=== PATIENT | female | born 1945 | race Hispanic/Latino ===

== ENCOUNTER 2017-05-23 09:41 | Observation (INO) | payer OTHER ==
[~2017-05-23] VITALS: Ht 162.6 cm; Wt 61.9 kg
[~2017-05-23 09:41] MED LIST: AMLO2.5T PO; ASPI-1181 PO; CHOL50004 PO; CLOP75TA14 PO; EZET10TA26 PO; FISH1CAP50 PO; GLIP5TAB11 PO; HYDR25TA PO; LISI40TA4 PO; SITA1TBM4 PO; UBID100C45 PO
[2017-05-23 10:12] LABS: BASOPHILS % (AUTO) 0.7 % (0.0-5.0); EOSINOPHILS % (AUTO) 2.5 % (0.0-8.0); LYMPHOCYTES % (AUTO) 29.1 % (21.0-51.0); MEAN CORPUSCULAR HEMOGLOBIN 30.4 pg (27.0-33.0); MEAN CORPUSCULAR HGB CONC 34.9 g/dL (32.0-36.0); MEAN CORPUSCULAR VOLUME 87.1 fL (79-99); MONOCYTES % (AUTO) 8.3 % (3.0-13.0); NEUTROPHILS % (AUTO) 59.4 % (40.0-77.0); PLATELET COUNT (AUTO) 241 K/uL (130-400); RED BLOOD CELL COUNT(AUTO) 3.79 MIL/uL (4.00-5.50); WHITE BLOOD COUNT (AUTO) 4.5 K/uL (4.8-10.8)
[2017-05-23 10:20] LABS: APPEARANCE,URINE Clear (CLEAR); BILIRUBIN,URINE Negative (NEGATIVE); COLOR,URINE Yellow (YELLOW); GLUCOSE, URINE (UA) TRACE mg/dL (NEGATIVE); KETONES,URINE Negative (NEGATIVE); LEUKOCYTE ESTERASE ,URINE Moderate (NEGATIVE); NITRATE,URINE Negative (NEGATIVE); OCCULT BLOOD,URINE Negative (NEGATIVE); PROTEIN,URINE Negative (NEGATIVE); UROBILINOGEN,URINE 0.2 mg/dL (0.2-1.0)
[2017-05-23] MEDS ORDERED: ASPIRIN 325 MG TABLET ONE (10:25)
[2017-05-23] MEDS ORDERED: NITROGLYCERIN 1GM/1 INCH PACKET TD ONE (10:25)
[2017-05-23 10:35] LABS: BACTERIA,URINE Rare /HPF (None Seen); MUCUS,URINE Few LPF (None Seen); SQUAMOUS EPITHELIAL CELL,UR Rare /HPF (0-2)
[2017-05-23 10:44] LABS: INR 0.93 (0.85-1.15); PARTIAL THROMBOPLASTIN TIME 26.6 SEC (26.3-35.5); PROTHROMBIN TIME 9.8 SEC (9.6-11.6)
[2017-05-23 10:49] LABS: CREATININE 0.8 mg/dL (0.5-1.5)
[2017-05-23 11:08] LABS: ALBUMIN 3.4 g/dL (3.5-5.0); BILIRUBIN,TOTAL 0.2 mg/dL (0.2-1.0); TOTAL PROTEIN, SERUM 7.1 g/dL (6.0-8.3)
[2017-05-23 12:00] LABS: CREATINE KINASE MB 0.8 ng/mL (0.5-3.6)
[2017-05-23 16:29] LABS: CREATINE KINASE MB 0.8 ng/mL (0.5-3.6); CREATINE KINASE, TOTAL 30 U/L (21-232); MYOGLOBIN 22 ng/mL (10-92); TROPONIN I < 0.04 ng/mL (0.00-0.06)
[2017-05-23] MEDS: GLIPIZIDE 5 MG TABLET PO SCH (16:30)
[2017-05-23] MEDS ORDERED: METOPROLOL TARTRATE 25 MG TAB ONE (20:54)
[2017-05-23] MEDS: METOPROLOL TARTRATE 25 MG TAB PO SCH (21:00)
[2017-05-23 23:51] VITALS: BP 144/60
[2017-05-24] MEDS ORDERED: PRAV40TA3 PO (00:17)
[2017-05-24] MEDS ORDERED: UBID100C10 PO (00:17)
[2017-05-24] MEDS ORDERED: LISI40TA4 PO (00:17)
[2017-05-24] MEDS ORDERED: GLIP5TAB11 PO (00:17)
[2017-05-24] MEDS ORDERED: AEC81 PO (00:17)
[2017-05-24] MEDS ORDERED: NITR0.4T50 SL (00:17)
[2017-05-24] MEDS ORDERED: EZET10TA26 PO (00:17)
[2017-05-24] MEDS ORDERED: SITA1TAB6 PO (00:17)
[2017-05-24] MEDS ORDERED: HYDR25TA PO (00:17)
[2017-05-24] MEDS ORDERED: CALC-866 PO (00:17)
[2017-05-24] MEDS ORDERED: RED600TA PO (00:17)
[2017-05-24] MEDS ORDERED: GLUCOCIL PO (00:17)
[2017-05-24] MEDS ORDERED: CYAN-35 PO (00:17)
[2017-05-24] MEDS ORDERED: FISH1CAP27 PO ×2 (00:17)
[2017-05-24] MEDS ORDERED: AMLO25PO MC (00:17)
[2017-05-24] MEDS ORDERED: HYDRALAZINE HCL 20 MG/ML VIAL IV PRN (01:15)
[2017-05-24] MEDS ORDERED: MORPHINE SULFATE 2 MG/ML 1ML SYG IVP PRN ×2 (01:15)
[2017-05-24] MEDS ORDERED: ONDANSETRON HCL MDV 20ML 2 MG/ML VIAL IVP PRN (01:15)
[2017-05-24] MEDS ORDERED: GLUCAGON 1MG KIT 1 MG ML IM PRN (01:15)
[2017-05-24] MEDS ORDERED: ACETAMINOPHEN 325 MG TAB PO PRN (01:15)
[2017-05-24] MEDS ORDERED: LIDOCAINE HCL-MPF 1% 2ML VIAL IVP PRN (01:15)
[2017-05-24] MEDS ORDERED: DEXTROSE 50%-WATER 50 ML DISP.SYRIN IV PRN (01:15)
[2017-05-24] MEDS ORDERED: LACTULOSE 20 GM/30 ML UDCUP PO PRN (01:15)
[2017-05-24] MEDS ORDERED: POTASSIUM CHLORIDE 10% ELIXIR 20 MEQ/15 ML UDCUP PO PRN (01:15)
[2017-05-24] MEDS ORDERED: POTASSIUM CHLORIDE 20MEQ/100ML 100 ML IV PRN (01:15)
[2017-05-24] MEDS ORDERED: POTASSIUM CHLORIDE 20 MEQ ERTAB PO PRN (01:15)
[2017-05-24] MEDS ORDERED: LEVOFLOXACIN 500 MG/D5W 100 ML 100 ML IV SCH (01:15)
[2017-05-24] MEDS ORDERED: LEVOFLOXACIN 500 MG/D5W 100 ML 100 ML ONE (01:42)
[2017-05-24 03:33] VITALS: BP 132/55
[2017-05-24 04:46] LABS: BASOPHILS % (AUTO) 0.6 % (0.0-5.0); EOSINOPHILS % (AUTO) 3.1 % (0.0-8.0); HEMATOCRIT 32.3 % (36-48); LYMPHOCYTES % (AUTO) 28.5 % (21.0-51.0); MEAN CORPUSCULAR HEMOGLOBIN 30.3 pg (27.0-33.0); MEAN CORPUSCULAR HGB CONC 35.2 g/dL (32.0-36.0); MEAN CORPUSCULAR VOLUME 86.2 fL (79-99); NEUTROPHILS % (AUTO) 57.8 % (40.0-77.0); NUCLEATED RED BLOOD CELLS 0.1 % (0.0-0.19); PLATELET COUNT (AUTO) 243 K/uL (130-400); RED BLOOD CELL COUNT(AUTO) 3.75 MIL/uL (4.00-5.50); RED CELL DISTRIBUTION WIDTH 13.6 % (11.0-15.5)
[2017-05-24 05:00] LABS: CREATININE 0.8 mg/dL (0.5-1.5)
[2017-05-24 05:04] LABS: HEMOGLOBIN A1C 7.9 % (4.0-6.0)
[2017-05-24] MEDS: GLIPIZIDE 5 MG TABLET PO SCH ×2 (06:41→16:27)
[2017-05-24] MEDS: INSULIN HUMULIN R 100 UNIT/ML 3ML SQ SCH ×3 (06:42→16:30)
[2017-05-24 07:00] VITALS: BP 124/53
[2017-05-24] MEDS ORDERED: REGADENOSON 0.4 MG/5 ML PF SYG IVP SCH (07:15)
[2017-05-24] MEDS: METOPROLOL TARTRATE 25 MG TAB PO SCH (08:10)
[2017-05-24] MEDS ORDERED: EZETIMIBE 10 MG TAB PO SCH (09:00)
[2017-05-24] MEDS ORDERED: CLOPIDOGREL BISULFATE 75 MG TAB PO SCH (09:00)
[2017-05-24] MEDS ORDERED: FAMOTIDINE 20MG TAB 20 MG TAB PO SCH (09:00)
[2017-05-24] MEDS ORDERED: ENOXAPARIN SODIUM 40 MG/0.4 ML SYRINGE SQ SCH (09:00)
[2017-05-24] MEDS ORDERED: ASPIRIN 81MG TAB.CHEW PO SCH (09:00)
[2017-05-24] MEDS ORDERED: LISINOPRIL 40 MG TABLET PO SCH (09:00)
[2017-05-24 11:00] VITALS: BP 150/63
[2017-05-24 16:00] VITALS: BP 137/66
[2017-05-25] MEDS ORDERED: HYDROCHLOROTHIAZIDE 25 MG TABLET PO SCH (09:00)
[2017-05-25] MEDS ORDERED: EZETIMIBE 10 MG TAB PO SCH (09:00)
== END 2017-05-24 18:51 | disposition home or self-care (01) ==
LOC: EDH 09:41 → EDHIP 15:36 → 2AH 23:43
PROVIDERS: ADMIT Internal Medicine; ATTEND Internal Medicine
DX: I25.110 Atherosclerotic heart disease of native coronary artery with unstable angina pectoris (principal); I10 Essential (primary) hypertension; E78.5 Hyperlipidemia, unspecified; E11.51 Type 2 diabetes mellitus with diabetic peripheral angiopathy without gangrene; E11.65 Type 2 diabetes mellitus with hyperglycemia; N39.0 Urinary tract infection, site not specified; I25.2 Old myocardial infarction; Z95.1 Presence of aortocoronary bypass graft; Z95.5 Presence of coronary angioplasty implant and graft; Z88.1 Allergy status to other antibiotic agents; Z79.82 Long term (current) use of aspirin; Z79.84 Long term (current) use of oral hypoglycemic drugs; Z79.899 Other long term (current) drug therapy; Z88.0 Allergy status to penicillin
CPT/HCPCS: 36415 ×2; 71045; 78452; 80048; 80053; 80061; 81001; 82550 ×2; 82553 ×2; 82948 ×5; 83036; 83874; 84484 ×3; 85025 ×2; 85610; 85730; 93005 ×2; 93017; 96372; 99285; A9500 ×2; G0378 ×27; J1650; J1815; J1956; J2785; 96374; 99291

== ENCOUNTER → 2017-07-06 | Outpatient (CLI) | payer OTHER ==
[~2017-07-06] MED LIST changes: +AEC81 PO; +AMLO25PO MC; +CALC-866 PO; +CYAN-35 PO; +FISH1CAP27 PO; +GLUCOCIL PO; +NITR0.4T50 SL; +PRAV40TA3 PO; +RED600TA PO; +SITA1TAB6 PO; +UBID100C10 PO
== END | disposition home or self-care (01) ==
LOC: SLP 20:20
PROVIDERS: ATTEND Internal Medicine Cardiovascular Disease
DX: G47.33 Obstructive sleep apnea (adult) (pediatric) (principal)
CPT/HCPCS: 95810

== ENCOUNTER → 2017-07-18 | Outpatient (CLI) | payer OTHER | END | disposition home or self-care (01) | LOC: SLP 20:24 | PROVIDERS: ATTEND Internal Medicine Cardiovascular Disease | DX: G47.33 Obstructive sleep apnea (adult) (pediatric) (principal) | CPT/HCPCS: 95811 ==

== ENCOUNTER 2018-01-14 19:21 | Emergency (ER) | payer OTHER ==
[~2018-01-14 19:21] MED LIST changes: -AMLO2.5T PO; +AMLO2.5T3 PO
[2018-01-14 20:06] LABS: INR 0.92 (0.85-1.15); PARTIAL THROMBOPLASTIN TIME 23.7 SEC (26.3-35.5); PROTHROMBIN TIME 9.7 SEC (9.6-11.6)
[2018-01-14 20:07] LABS: BASOPHILS % (AUTO) 0.5 % (0.0-5.0); EOSINOPHILS % (AUTO) 2.8 % (0.0-8.0); HEMATOCRIT 34.3 % (36-48); LYMPHOCYTES % (AUTO) 24.1 % (21.0-51.0); MEAN CORPUSCULAR HEMOGLOBIN 29.4 pg (27.0-33.0); MEAN CORPUSCULAR HGB CONC 33.4 g/dL (32.0-36.0); MEAN CORPUSCULAR VOLUME 88.2 fL (79-99); MONOCYTES % (AUTO) 6.6 % (3.0-13.0); NUCLEATED RED BLOOD CELLS 0.1 % (0.0-0.19); PLATELET COUNT (AUTO) 233 K/uL (130-400); RED BLOOD CELL COUNT(AUTO) 3.89 MIL/uL (4.00-5.50); RED CELL DISTRIBUTION WIDTH 14.1 % (11.0-15.5); WHITE BLOOD COUNT (AUTO) 6.8 K/uL (4.8-10.8)
[2018-01-14 20:21] LABS: CREATININE 0.8 mg/dL (0.5-1.5); POTASSIUM 4.1 mmol/L (3.5-5.1)
[2018-01-14 20:26] LABS: ALBUMIN 3.6 g/dL (3.5-5.0); BILIRUBIN,TOTAL 0.2 mg/dL (0.2-1.0); TOTAL PROTEIN, SERUM 7.3 g/dL (6.0-8.3)
[2018-01-14] MEDS ORDERED: TRAMADOL HCL 50 MG TABLET ONE (20:40)
== END 2018-01-14 22:22 | disposition home or self-care (01) ==
LOC: EDH 19:21
DX: S09.90XA Unspecified injury of head, initial encounter (principal); M54.2 Cervicalgia; M54.5 Low back pain; R07.89 Other chest pain; E11.9 Type 2 diabetes mellitus without complications; E78.5 Hyperlipidemia, unspecified; I10 Essential (primary) hypertension; I25.2 Old myocardial infarction; Z95.1 Presence of aortocoronary bypass graft; W10.8XXA Fall (on) (from) other stairs and steps, initial encounter; Y93.89 Activity, other specified; Y92.89 Other specified places as the place of occurrence of the external cause; Y99.8 Other external cause status
CPT/HCPCS: 36415; 70450; 71045; 72100; 72125; 80053; 82550; 84484; 85025; 85610; 85730; 93005; 94761

== ENCOUNTER → 2018-10-11 | Outpatient (CLI) | payer OTHER ==
[~2018-10-11] MED LIST changes: -AMLO2.5T3 PO; +AMLO2.5T4 PO; -EZET10TA26 PO; +EZET10TA48 PO
== END | disposition home or self-care (01) ==
LOC: SHCH 13:00
PROVIDERS: ATTEND Internal Medicine Cardiovascular Disease
DX: I08.0 Rheumatic disorders of both mitral and aortic valves (principal); I11.9 Hypertensive heart disease without heart failure
CPT/HCPCS: 93306; 93880

== ENCOUNTER → 2018-11-16 | Outpatient (CLI) | payer OTHER ==
[~2018-11-16] MED LIST changes: +REGADENOSON 0.4 MG/5 ML PF SYG IVP ONE
== END | disposition home or self-care (01) ==
LOC: SHCH 08:23
PROVIDERS: ATTEND Internal Medicine Cardiovascular Disease
DX: I10 Essential (primary) hypertension (principal)
CPT/HCPCS: 78452; 93017; 96374; A9500 ×2; J2785

== ENCOUNTER 2018-12-03 07:43 | Emergency (ER) | payer OTHER ==
[~2018-12-03 07:43] MED LIST changes: -REGADENOSON 0.4 MG/5 ML PF SYG IVP ONE
[2018-12-03] MEDS ORDERED: HYDROCODONE/ACETAMINOPHEN 10/325 MG TAB ONE (08:47)
[2018-12-03] MEDS ORDERED: CYCLOBENZAPRINE HCL 10 MG TABLET ONE (08:47)
== END 2018-12-03 11:18 | disposition home or self-care (01) ==
LOC: EDH 07:43
DX: M51.36 Other intervertebral disc degeneration, lumbar region (principal); E11.9 Type 2 diabetes mellitus without complications; I10 Essential (primary) hypertension; I25.2 Old myocardial infarction; E78.5 Hyperlipidemia, unspecified; Z98.890 Other specified postprocedural states
CPT/HCPCS: 72131

== ENCOUNTER 2018-12-11 22:04 | Emergency (ER) | payer OTHER ==
[2018-12-11] MEDS ORDERED: ASPIRIN 325MG EC TAB 325 MG TABLET.DR PO ONE (22:39)
[2018-12-11 22:44] LABS: APPEARANCE,URINE Clear (CLEAR); BILIRUBIN,URINE Negative (NEGATIVE); COLOR,URINE Yellow (YELLOW); GLUCOSE, URINE (UA) >=1000 mg/dL (NEGATIVE); KETONES,URINE Trace mg/dL (NEGATIVE); LEUKOCYTE ESTERASE ,URINE Negative (NEGATIVE); NITRATE,URINE Negative (NEGATIVE); OCCULT BLOOD,URINE Negative (NEGATIVE); PROTEIN,URINE Negative (NEGATIVE); UROBILINOGEN,URINE 0.2 mg/dL (0.2-1.0)
[2018-12-11 22:58] LABS: BACTERIA,URINE Rare /HPF (None Seen)
[2018-12-11 23:13] LABS: BASOPHILS % (AUTO) 0.2 % (0.0-5.0); EOSINOPHILS % (AUTO) 0.1 % (0.0-8.0); LYMPHOCYTES % (AUTO) 11.3 % (21.0-51.0); MEAN CORPUSCULAR HEMOGLOBIN 29.9 pg (27.0-33.0); MEAN CORPUSCULAR HGB CONC 34.2 g/dL (32.0-36.0); MEAN CORPUSCULAR VOLUME 87.5 fL (79-99); MONOCYTES % (AUTO) 4.5 % (3.0-13.0); NEUTROPHILS % (AUTO) 83.9 % (40.0-77.0); PLATELET COUNT (AUTO) 305 K/uL (130-400); RED BLOOD CELL COUNT(AUTO) 3.77 MIL/uL (4.00-5.50); WHITE BLOOD COUNT (AUTO) 6.9 K/uL (4.8-10.8)
[2018-12-11] MEDS ORDERED: DIAZEPAM 2 MG TAB ONE (23:16)
[2018-12-11 23:28] LABS: INR 0.96 (0.85-1.15); PARTIAL THROMBOPLASTIN TIME 27.3 SEC (26.3-35.5); PROTHROMBIN TIME 10.1 SEC (9.6-11.6)
[2018-12-11 23:47] LABS: ALBUMIN 3.6 g/dL (3.5-5.0); BILIRUBIN,TOTAL 0.3 mg/dL (0.2-1.0); CREATININE 1.2 mg/dL (0.5-1.5); POTASSIUM 4.3 mmol/L (3.5-5.1); TOTAL PROTEIN, SERUM 7.2 g/dL (6.0-8.3)
[2018-12-11 23:50] LABS: B-TYPE NATRIURETIC PEPTIDE 116 pg/mL (0-100)
[2018-12-11] MEDS ORDERED: SODIUM CHLORIDE 0.9% 500ML 500 ML IV ONE (23:55)
== END 2018-12-12 01:08 | disposition home or self-care (01) ==
LOC: EDH 22:04
DX: R07.89 Other chest pain (principal); E11.65 Type 2 diabetes mellitus with hyperglycemia; R10.2 Pelvic and perineal pain; E78.5 Hyperlipidemia, unspecified; I25.10 Atherosclerotic heart disease of native coronary artery without angina pectoris; M19.90 Unspecified osteoarthritis, unspecified site; Z95.1 Presence of aortocoronary bypass graft
CPT/HCPCS: 36415; 71045; 80053; 81001; 82550; 83880; 84484; 85025; 85610; 85730; 93005; 96360; 99285; J7040

== ENCOUNTER → 2018-12-21 | Outpatient (CLI) | payer OTHER | END | disposition home or self-care (01) | LOC: RAH 09:37 | PROVIDERS: ATTEND Internal Medicine | DX: M16.12 Unilateral primary osteoarthritis, left hip (principal); M85.88 Other specified disorders of bone density and structure, other site; I70.0 Atherosclerosis of aorta | CPT/HCPCS: 73502 ==

== ENCOUNTER → 2019-01-08 | Outpatient (CLI) | payer OTHER | END | disposition home or self-care (01) | LOC: RAH 10:08 | PROVIDERS: ATTEND Internal Medicine | DX: M48.54XA Collapsed vertebra, not elsewhere classified, thoracic region, initial encounter for fracture (principal) | CPT/HCPCS: 72072 ==

== ENCOUNTER 2019-03-20 13:23 | Emergency (ER) | payer OTHER ==
[~2019-03-20 13:23] MED LIST changes: +ACET1TAB25 PO; -AEC81 PO; -AMLO25PO MC; -ASPI-1181 PO; +ASPI-1197 PO; -CALC-866 PO; +CHOL400C9 PO; -CHOL50004 PO; -CLOP75TA14 PO; +CLOP75TA32 PO; -CYAN-35 PO; -FISH1CAP50 PO; -HYDR25TA PO; +INSU3INS3 SQ; +LEVO500T2 PO; -NITR0.4T50 SL; -RED600TA PO; -SITA1TBM4 PO; -UBID100C10 PO; -UBID100C45 PO; +UBID1CAP2 PO
[2019-03-20 14:24] LABS: BASOPHILS % (AUTO) 0.5 % (0.0-5.0); EOSINOPHILS % (AUTO) 1.6 % (0.0-8.0); LYMPHOCYTES % (AUTO) 22.2 % (21.0-51.0); MEAN CORPUSCULAR HEMOGLOBIN 28.8 pg (27.0-33.0); MEAN CORPUSCULAR HGB CONC 32.1 g/dL (32.0-36.0); MEAN CORPUSCULAR VOLUME 89.9 fL (79-99); MONOCYTES % (AUTO) 6.4 % (3.0-13.0); PLATELET COUNT (AUTO) 308 K/uL (130-400); RED BLOOD CELL COUNT(AUTO) 3.78 MIL/uL (4.00-5.50); RED CELL DISTRIBUTION WIDTH 15.1 % (11.0-15.5); WHITE BLOOD COUNT (AUTO) 6.4 K/uL (4.8-10.8)
[2019-03-20 14:27] LABS: APPEARANCE,URINE Clear (CLEAR); BILIRUBIN,URINE Negative (NEGATIVE); COLOR,URINE Yellow (YELLOW); GLUCOSE, URINE (UA) Negative (NEGATIVE); KETONES,URINE 15 mg/dL (NEGATIVE); LEUKOCYTE ESTERASE ,URINE Trace (NEGATIVE); NITRATE,URINE Negative (NEGATIVE); OCCULT BLOOD,URINE Negative (NEGATIVE); PROTEIN,URINE Negative (NEGATIVE)
[2019-03-20] MEDS ORDERED: SODIUM CHLORIDE 0.9% 1000ML 1,000 ML IV ONE (14:49)
[2019-03-20] MEDS ORDERED: MORPHINE SULFATE 4 MG/1ML SYG ONE (14:50)
[2019-03-20] MEDS ORDERED: ACETAMINOPHEN 325 MG TAB ONE (14:50)
[2019-03-20 14:51] LABS: BACTERIA,URINE Rare /HPF (None Seen); RBC,URINE None Seen /HPF (0-1); SQUAMOUS EPITHELIAL CELL,UR 0-2 /HPF (0-2); WBC,URINE 0-1 /HPF (0-1)
[2019-03-20 15:00] LABS: CREATININE 0.7 mg/dL (0.5-1.5); POTASSIUM 3.8 mmol/L (3.5-5.1)
[2019-03-20 15:04] LABS: ALBUMIN 3.7 g/dL (3.5-5.0); BILIRUBIN,TOTAL 0.3 mg/dL (0.2-1.0); TOTAL PROTEIN, SERUM 7.2 g/dL (6.0-8.3)
[2019-03-20] MEDS ORDERED: IOHEXOL-350 75 ML VIAL IV ONE (15:26)
== END 2019-03-20 17:22 | disposition home or self-care (01) ==
LOC: EDH 13:23
DX: R10.30 Lower abdominal pain, unspecified (principal); M48.54XA Collapsed vertebra, not elsewhere classified, thoracic region, initial encounter for fracture; M19.90 Unspecified osteoarthritis, unspecified site; E11.9 Type 2 diabetes mellitus without complications; E78.5 Hyperlipidemia, unspecified; I10 Essential (primary) hypertension; I25.10 Atherosclerotic heart disease of native coronary artery without angina pectoris; Z88.1 Allergy status to other antibiotic agents; Z91.041 Radiographic dye allergy status
CPT/HCPCS: 36415; 74177; 80053; 81001; 83605; 85025; 96374; 99285; J2270; J7030; Q9967

== ENCOUNTER → 2019-03-26 | Outpatient (CLI) | payer OTHER | END | disposition home or self-care (01) | LOC: RAH 11:16 | PROVIDERS: ATTEND Internal Medicine | DX: Z12.31 Encounter for screening mammogram for malignant neoplasm of breast (principal) | CPT/HCPCS: 77067 ==

== ENCOUNTER → 2019-04-03 | Outpatient (CLI) | payer OTHER | END | disposition home or self-care (01) | LOC: RAH 07:36 | PROVIDERS: ATTEND Internal Medicine | DX: N28.1 Cyst of kidney, acquired (principal); N20.0 Calculus of kidney; N39.0 Urinary tract infection, site not specified | CPT/HCPCS: 76770; 76856 ==

== ENCOUNTER 2019-04-07 19:19 | Emergency (ER) | payer OTHER ==
[2019-04-07 20:00] LABS: BASOPHILS % (AUTO) 0.3 % (0.0-5.0); EOSINOPHILS % (AUTO) 1.2 % (0.0-8.0); HEMATOCRIT 35.6 % (36-48); LYMPHOCYTES % (AUTO) 17.4 % (21.0-51.0); MEAN CORPUSCULAR HEMOGLOBIN 28.6 pg (27.0-33.0); MEAN CORPUSCULAR VOLUME 89.4 fL (79-99); MONOCYTES % (AUTO) 6.7 % (3.0-13.0); NEUTROPHILS % (AUTO) 74.2 % (40.0-77.0); PLATELET COUNT (AUTO) 295 K/uL (130-400); RED BLOOD CELL COUNT(AUTO) 3.98 MIL/uL (4.00-5.50); WHITE BLOOD COUNT (AUTO) 9.3 K/uL (4.8-10.8)
[2019-04-07] MEDS ORDERED: SODIUM CHLORIDE 0.9% 1000ML 1,000 ML IV ONE (20:00)
[2019-04-07] MEDS ORDERED: ONDANSETRON HCL 4 MG/2 ML VIAL ONE (20:00)
[2019-04-07] MEDS ORDERED: MORPHINE SULFATE 4 MG/1ML SYG ONE (20:01)
[2019-04-07 20:02] LABS: APPEARANCE,URINE Cloudy (CLEAR); BILIRUBIN,URINE Negative (NEGATIVE); COLOR,URINE Dark Yellow (YELLOW); GLUCOSE, URINE (UA) >=1000 mg/dL (NEGATIVE); KETONES,URINE Negative (NEGATIVE); LEUKOCYTE ESTERASE ,URINE Trace (NEGATIVE); NITRATE,URINE Negative (NEGATIVE); OCCULT BLOOD,URINE Large (NEGATIVE); PROTEIN,URINE POS 1+ mg/dL (NEGATIVE)
[2019-04-07 20:11] LABS: BACTERIA,URINE None Seen /HPF (None Seen); RBC,URINE 51-100 /HPF (0-1); YEAST,URINE BUDDING Moderate /HPF (None Seen)
[2019-04-07 20:12] LABS: SQUAMOUS EPITHELIAL CELL,UR Few /HPF (0-2)
[2019-04-07 20:14] LABS: CREATININE 0.8 mg/dL (0.5-1.5); POTASSIUM 4.7 mmol/L (3.5-5.1)
[2019-04-07 20:18] LABS: ALBUMIN 4.2 g/dL (3.5-5.0); BILIRUBIN,TOTAL 0.3 mg/dL (0.2-1.0); TOTAL PROTEIN, SERUM 7.6 g/dL (6.0-8.3)
[2019-04-07] MEDS ORDERED: KETOROLAC TROMETHAMINE 30MG/ML ONE (22:17)
== END 2019-04-07 22:59 | disposition home or self-care (01) ==
LOC: EDH 19:19
DX: N20.0 Calculus of kidney (principal); I25.810 Atherosclerosis of coronary artery bypass graft(s) without angina pectoris; E11.9 Type 2 diabetes mellitus without complications; E78.5 Hyperlipidemia, unspecified; I10 Essential (primary) hypertension; Z88.1 Allergy status to other antibiotic agents
CPT/HCPCS: 36415; 74176; 80053; 81001; 82150; 83690; 84484; 85025; 93005; 96374; 96375; 99285; J1885; J2270; J2405; J7030

== ENCOUNTER → 2019-04-24 | Outpatient (CLI) | payer OTHER | END | disposition home or self-care (01) | LOC: RAH 08:51 | PROVIDERS: ATTEND Urology | DX: N28.89 Other specified disorders of kidney and ureter (principal); N20.0 Calculus of kidney; M47.816 Spondylosis without myelopathy or radiculopathy, lumbar region; S22.089A Unspecified fracture of T11-T12 vertebra, initial encounter for closed fracture; I87.8 Other specified disorders of veins; X58.XXXA Exposure to other specified factors, initial encounter; Y93.89 Activity, other specified; Y92.89 Other specified places as the place of occurrence of the external cause; Y99.8 Other external cause status | CPT/HCPCS: 74018 ==

== ENCOUNTER → 2019-05-01 | Outpatient (CLI) | payer OTHER | END | disposition home or self-care (01) | LOC: RAH 12:37 | PROVIDERS: ATTEND Urology | DX: N28.1 Cyst of kidney, acquired (principal); N20.0 Calculus of kidney; J98.11 Atelectasis; M43.8X4 Other specified deforming dorsopathies, thoracic region; M47.816 Spondylosis without myelopathy or radiculopathy, lumbar region | CPT/HCPCS: 74176 ==

== ENCOUNTER → 2019-09-11 | Outpatient (CLI) | payer OTHER | END | disposition home or self-care (01) | LOC: SHCH 14:31 | PROVIDERS: ATTEND Internal Medicine Cardiovascular Disease | DX: I70.292 Other atherosclerosis of native arteries of extremities, left leg (principal); I70.201 Unspecified atherosclerosis of native arteries of extremities, right leg | CPT/HCPCS: 93925 ==

== ENCOUNTER → 2020-05-06 | Outpatient (CLI) | payer OTHER ==
[~2020-05-06] MED LIST changes: -LISI40TA4 PO; +LISI40TA9 PO
== END | disposition home or self-care (01) ==
LOC: RAH 11:23
PROVIDERS: ATTEND Internal Medicine
DX: M85.88 Other specified disorders of bone density and structure, other site (principal); M16.0 Bilateral primary osteoarthritis of hip; M51.36 Other intervertebral disc degeneration, lumbar region
CPT/HCPCS: 72100; 73521

== ENCOUNTER → 2020-07-09 | Outpatient (CLI) | payer OTHER ==
[~2020-07-09] MED LIST changes: +IOHEXOL 350 MG/ML 100ML INFUS..BTL IV ONE; +IOHEXOL-350 50ML VIAL IV ONE
== END | disposition home or self-care (01) ==
LOC: RAH 08:08
PROVIDERS: ATTEND Internal Medicine Cardiovascular Disease
DX: I73.9 Peripheral vascular disease, unspecified (principal); I70.0 Atherosclerosis of aorta; N85.8 Other specified noninflammatory disorders of uterus
CPT/HCPCS: 75635; Q9967 ×2

== ENCOUNTER → 2020-08-19 | Outpatient (CLI) | payer OTHER ==
[~2020-08-19] MED LIST changes: -IOHEXOL 350 MG/ML 100ML INFUS..BTL IV ONE; -IOHEXOL-350 50ML VIAL IV ONE
== END | disposition home or self-care (01) ==
LOC: RAH 09:40
PROVIDERS: ATTEND Internal Medicine
DX: Z12.31 Encounter for screening mammogram for malignant neoplasm of breast (principal)
CPT/HCPCS: 77067

== ENCOUNTER → 2021-07-07 | Outpatient (CLI) | payer OTHER ==
[~2021-07-07] MED LIST changes: +ACET-2079 PO; -ACET1TAB25 PO
== END | disposition home or self-care (01) ==
LOC: SHCH 09:10
PROVIDERS: ATTEND Internal Medicine Cardiovascular Disease
DX: I65.23 Occlusion and stenosis of bilateral carotid arteries (principal)
CPT/HCPCS: 93880

== ENCOUNTER → 2021-10-12 | Outpatient (CLI) | payer OTHER ==
[2021-10-12 12:41] LABS: ALBUMIN 3.9 g/dL (3.5-5.0); CREATININE 0.9 mg/dL (0.5-1.5); POTASSIUM 4.7 mmol/L (3.5-5.1); TOTAL PROTEIN, SERUM 7.4 g/dL (6.0-8.3)
== END | disposition home or self-care (01) ==
LOC: LAB 08:13
PROVIDERS: ATTEND Internal Medicine Cardiovascular Disease
DX: I10 Essential (primary) hypertension (principal)
CPT/HCPCS: 36415; 80053

== ENCOUNTER → 2021-10-19 | Outpatient (CLI) | payer OTHER ==
[~2021-10-19] MED LIST changes: +IOHEXOL 350 MG/ML 100ML INFUS..BTL IV ONE; +IOHEXOL-350 50ML VIAL IV ONE
== END | disposition home or self-care (01) ==
LOC: RAH 08:45
PROVIDERS: ATTEND Internal Medicine Cardiovascular Disease
DX: I70.0 Atherosclerosis of aorta (principal); I70.202 Unspecified atherosclerosis of native arteries of extremities, left leg; I65.23 Occlusion and stenosis of bilateral carotid arteries; Z95.820 Peripheral vascular angioplasty status with implants and grafts
CPT/HCPCS: 75635; Q9967 ×2

== ENCOUNTER → 2022-10-04 | Outpatient (CLI) | payer OTHER ==
[~2022-10-04] MED LIST changes: -IOHEXOL 350 MG/ML 100ML INFUS..BTL IV ONE; -IOHEXOL-350 50ML VIAL IV ONE
== END | disposition home or self-care (01) ==
LOC: RAH 15:00
PROVIDERS: ATTEND Internal Medicine
DX: Z12.31 Encounter for screening mammogram for malignant neoplasm of breast (principal)
CPT/HCPCS: 77067

== ENCOUNTER → 2023-01-03 | Outpatient (CLI) | payer OTHER ==
[~2023-01-03] MED LIST changes: -GLIP5TAB11 PO; +GLIP5TAB15 PO; +IOHEXOL 350 MG/ML 100ML INFUS..BTL IV ONE
== END | disposition home or self-care (01) ==
LOC: RAH 07:53
PROVIDERS: ATTEND Internal Medicine Cardiovascular Disease
DX: I70.90 Unspecified atherosclerosis (principal); R55 Syncope and collapse
CPT/HCPCS: 70496; 70498; Q9967

== ENCOUNTER → 2023-03-03 | Outpatient (CLI) | payer OTHER ==
[~2023-03-03] MED LIST changes: -IOHEXOL 350 MG/ML 100ML INFUS..BTL IV ONE
== END | disposition home or self-care (01) ==
LOC: SHCH 11:30
PROVIDERS: ATTEND Internal Medicine Cardiovascular Disease
DX: I65.23 Occlusion and stenosis of bilateral carotid arteries (principal)
CPT/HCPCS: 93880

== ENCOUNTER → 2023-10-18 | Outpatient (CLI) | payer OTHER | END | disposition home or self-care (01) | LOC: RAH 11:50 | DX: Z12.31 Encounter for screening mammogram for malignant neoplasm of breast (principal) | CPT/HCPCS: 77067 ==

== ENCOUNTER → 2024-03-15 | Outpatient (CLI) | payer OTHER ==
--- NOTE | 2024-03-20 09:30 | HMCSR ---
APPROVED REPORT Laterality: Bilateral Indications r09.89 Doppler Spectral Velocity Analysis PSV / EDVPSV / EDV ECA (R) 289 / cm/sECA (L) 438 / cm/s dICA (R) 130 / 32 cm/sdICA (L) 122 / 36 cm/s Deyvi (R) 148 / 32 cm/smICA (L) 225 / 40 cm/s pICA (R) 173 / 31 cm/spICA (L) 308 / 38 cm/s dCCA (R) 66 / 18 cm/sdCCA (L) 65 / 14 cm/s mCCA (R) 70 / 18 cm/smCCA (L) 70 / 15 cm/s pCCA (R) 93 / 19 cm/spCCA (L) 76 / 20 cm/s Vert (R) 60 / cm/sVert (L) 60 / cm/s Subl. (R) 96 / cm/sSubl. (L) 169 / cm/s ICA/CCA 1.86ICA/CCA 4.05 Technologist Impression Moderate heterogenous calcified plaque noted in the bilateral carotid bulbs. Evidence of at least 50-69% stenosis in the Right ICA, calcific image drop out proximally. Evidence of as least >70% stenosis in the Left ICA, calcific image drop out proximally. Increased velocities noted in the bilateral ECAs. Bilateral vertebral arteries appear antegrade. Conclusion Moderate heterogenous calcified plaque noted in the bilateral carotid bulbs. Evidence of at least 50-69% stenosis in the Right ICA, calcific image drop out proximally. Evidence of as least >70% stenosis in the Left ICA, calcific image drop out proximally. Increased velocities noted in the bilateral ECAs. Bilateral vertebral arteries appear antegrade. Conclusion Moderate heterogenous calcified plaque noted in the bilateral carotid bulbs. Evidence of at least 50-69% stenosis in the Right ICA, calcific image drop out proximally. Evidence of as least >70% stenosis in the Left ICA, calcific image drop out proximally. Increased velocities noted in the bilateral ECAs. Bilateral vertebral arteries appear antegrade.
== END | disposition home or self-care (01) ==
LOC: SHCH 14:39
PROVIDERS: ATTEND Internal Medicine Cardiovascular Disease
DX: I65.23 Occlusion and stenosis of bilateral carotid arteries (principal); R09.89 Other specified symptoms and signs involving the circulatory and respiratory systems
CPT/HCPCS: 93880

== ENCOUNTER 2024-04-05 05:36 | Day surgery (SDC) | payer OTHER ==
[2024-04-05] VITALS (11 sets, daily range): BP systolic 136–160; BP diastolic 43–60; PULSE 63–73; RESP 15–17; TEMP 97.2–97.8
[~2024-04-05] VITALS: Ht 162.6 cm; Wt 55.8 kg
[2024-04-05] MEDS ORDERED: LISI20TA24 PO (06:47)
[2024-04-05] MEDS ORDERED: AMLO-257 PO (06:47)
[2024-04-05] MEDS ORDERED: COq10 PO (06:47)
[2024-04-05] MEDS ORDERED: ATOR10 PO (06:47)
[2024-04-05] MEDS ORDERED: CLON0.1T PO (06:48)
[2024-04-05] MEDS ORDERED: SITA100T12 PO (06:48)
[2024-04-05] MEDS: 0.9%NACL 1000ML 1,000 ML IV ONE (07:03)
[2024-04-05] MEDS ORDERED: proPOFol 10 MG/ML 20ML VIAL IV ONE (08:08)
== END 2024-04-05 09:25 | disposition home or self-care (01) ==
LOC: ENDO 05:36 → DAH 05:36 → ENDO 09:25
PROVIDERS: ATTEND Surgery
DX: C16.9 Malignant neoplasm of stomach, unspecified (principal); K29.50 Unspecified chronic gastritis without bleeding; K30 Functional dyspepsia; K22.89 Other specified disease of esophagus; I10 Essential (primary) hypertension; E78.5 Hyperlipidemia, unspecified; E11.51 Type 2 diabetes mellitus with diabetic peripheral angiopathy without gangrene; E55.9 Vitamin D deficiency, unspecified; Z79.82 Long term (current) use of aspirin; Z79.899 Other long term (current) drug therapy
CPT/HCPCS: 82948 ×2; 43239; J7030 ×2; J2704; A4215; A4223; A7002; A4222; A4221; A4663; A4606; J3490

== ENCOUNTER → 2024-06-14 | Outpatient (CLI) | payer OTHER ==
[~2024-06-14] MED LIST changes: -ACET-2079 PO; +AMLO-257 PO; -AMLO2.5T4 PO; +ATOR10 PO; -CHOL400C9 PO; +CLON0.1T PO; +COq10 PO; -GLUCOCIL PO; -INSU3INS3 SQ; -LEVO500T2 PO; +LISI20TA24 PO; -LISI40TA9 PO; -PRAV40TA3 PO; +SITA100T12 PO; -SITA1TAB6 PO; -UBID1CAP2 PO
--- NOTE | 2024-06-14 11:16 | HMCIMG ---
DEXA BONE DENSITY SURVEY HISTORY: Osteoporosis COMPARISON: None FINDINGS: Bone densitometry study was performed. Bone mineral density of the lumbar spine is 1.175 gram per centimeter square which corresponds to a T score of 1.2 and a Z score of 3.7. Bone mineral density of the left hip is 0.742 grams per centimeter square which corresponds to a T score of -1.6 and a Z score of 0.2. IMPRESSION: 1. Normal bone mineral density of the lumbar spine and osteopenia of left hip.
== END | disposition home or self-care (01) ==
LOC: RAH 09:03
PROVIDERS: ATTEND Internal Medicine
DX: Z13.820 Encounter for screening for osteoporosis (principal); M81.0 Age-related osteoporosis without current pathological fracture; M85.89 Other specified disorders of bone density and structure, multiple sites
CPT/HCPCS: 77080

== ENCOUNTER 2024-07-23 08:22 | Emergency (ER) | payer OTHER ==
[~2024-07-23] VITALS: Ht 160 cm; Wt 53.1 kg
[2024-07-23 08:36] VITALS: TEMP 98.3
--- NOTE | 2024-07-23 08:55 | EKG ---
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
--- NOTE | 2024-07-23 09:03 | NUR ---
CT HERE TO TAKE PT TO HAVE A STUDY DONE
[2024-07-23 09:09] LABS: BASOPHILS # (AUTO) 0.02 K/uL (0.00-0.20); BASOPHILS % (AUTO) 0.4 % (0.0-5.0); EOSINOPHILS # (AUTO) 0.14 K/uL (0.00-0.70); EOSINOPHILS % (AUTO) 2.6 % (0.0-8.0); HEMATOCRIT 33.5 % (36-48); IMMATURE GRANULOCYTE ABSOLUTE 0.02 K/uL (0-1); LYMPHOCYTES # (AUTO) 1.2 K/uL (1.0-4.8); LYMPHOCYTES % (AUTO) 21.9 % (21.0-51.0); MEAN CORPUSCULAR HEMOGLOBIN 30.4 pg (27.0-33.0); MEAN CORPUSCULAR HGB CONC 33.1 g/dL (32.0-36.0); MEAN CORPUSCULAR VOLUME 91.8 fL (79-99); MONOCYTES # (AUTO) 0.4 K/uL (0.1-1.0); MONOCYTES % (AUTO) 6.6 % (3.0-13.0); NEUTROPHILS # (AUTO) 3.6 K/uL (1.8-7.7); NEUTROPHILS % (AUTO) 68.1 % (40.0-77.0); PLATELET COUNT (AUTO) 225 K/uL (130-400); RED BLOOD CELL COUNT(AUTO) 3.65 MIL/uL (4.00-5.50); WHITE BLOOD COUNT (AUTO) 5.3 K/uL (4.8-10.8)
--- NOTE | 2024-07-23 09:14 | NUR ---
PT JUST NOW RETURNED FROM CT SCAN
--- NOTE | 2024-07-23 09:16 | HMCIMG ---
Exam Type: CT HEAD/BRAIN W/O CONTRAST Clinical Information: BALL Comparison: None CT Dose Index (CTDI): 57.33 mGy Dose Length Product (DLP): 956.79 total mGy-cm Findings: The examination shows atrophy. There is low attenuation throughout the periventricular white matter locations, consistent with chronic small vessel ischemic changes. No acute intra- or extra-axial fluid collections are seen. There is no evidence of acute or chronic hemorrhage. There is no mass effect or shift of midline structures. There are no areas to suggest acute infarct. The skull windows show no significant abnormalities. IMPRESSION: 1. ATROPHY AND CHRONIC SMALL VESSEL ISCHEMIC CHANGES. This study was performed using dose reduction techniques to include automated exposure control and/or adjustment of the mA and/or kV according to patient size.
[2024-07-23 09:18] LABS: CREATININE 1.7 mg/dL (0.5-1.0); POTASSIUM 4.3 mmol/L (3.5-5.1)
[2024-07-23] MEDS: 0.9%NACL 1000ML 1,000 ML IV ONE (09:19)
[2024-07-23] MEDS: acetaMINOPHEN 500 MG TABLET PO ONE (09:20)
--- NOTE | 2024-07-23 09:21 | ERN ---
ED Note History of Present Illness Stated Complaint: HEADACHE, UNCONTROLLED DM Chief Complaint: Headache Time Seen by MD: 08:32 Dictation: 78-year-old female with a history of DM presents to the ED for evaluation of headache onset one day ago. Patient reports she started new DM medication a week ago and mentioned her blood sugar has been uncontrolled stating she has her blood glucose during the day around the 100s and at night they increase to the 300s. Patient denies any other associated symptoms at this time. Patient has a PCP follow up this upcoming Tuesday. Allergies: Coded Allergies: No Known Drug Allergies (Unverified Allergy, Unknown, 04/04/24) Home Meds Reported Medications Sitagliptin Phosphate (Januvia) 100 Mg Tablet, 1 TAB PO DAILY for 30 Days, #30 TAB 0 Refills 04/05/24 Clonidine HCl (Clonidine HCl) 0.1 Mg Tablet, 0.1 MG PO EVERY 8 HOURS, TAB 04/05/24 [COq10] No Conflict Check, 100 MG PO AM 04/05/24 Atorvastatin Calcium (LIPITOR) 20 Mg Tab, 1 TAB PO DAILY for 30 Days, #30 TAB 0 Refills 04/05/24 Lisinopril (Lisinopril) 20 Mg Tablet, 1 TAB PO DAILY for 30 Days, #30 TAB 0 Refills 04/05/24 Amlodipine Besylate (Amlodipine Besylate) 5 Mg Tablet, 5 MG PO BID, TAB 04/05/24 Aspirin (Aspirin) 81 Mg Tab.chew, 81 MG PO DAILY, TAB.CHEW 02/07/19 [place]-3 Fatty Acids/Fish Oil ([place] 3 1,000 mg Softgel) 1 Each Capsule, 1 EACH PO HS, CAP 02/07/19 Glipizide (Glipizide) 5 Mg Tablet, 5 MG PO DAILY, TAB 02/07/19 Ezetimibe (Ezetimibe) 10 Mg Tablet, 10 MG PO DAILY, TAB 02/07/19 Clopidogrel Bisulfate (Clopidogrel) 75 Mg Tablet, 75 MG PO DAILY, TAB 02/07/19 Past Medical History Past Medical History: Cancer, Diabetes-Type II, High Cholesterol, Heart Disease, Hypertension, Vascular Disease Additional Past Medical Hx: HX STOMACH CA Surgical History: CABG Surgical History Other: LEG STENTS Review of System Dictation Constitutional: Negative for fever,chills, and weight loss Eyes: Negative for injury, pain,redness, and discharge ENT: Negative for injury,pain or swelling Cardiovascular: Negative for chest pain, palpitations, and edema Respiratory: Negative for shortness of breath, cough, and wheezing, Abdomen/GI: Negative for abdominal pain, nausea, vomiting, diarrhea, and constipation Back: Negative for injury and pain : Negative for injury, bleeding and discharge MS/Extremity: Negative for injury and deformity Skin: Negative for rash, and discoloration Neuro: Positive for headache Psych: Negative for suicide ideation, homicidal ideation, and hallucinations Initial Vital Sign VS Vital Signs Date Time Temp Pulse Resp B/P (MAP) Pulse Ox O2 Delivery O2 Flow Rate FiO2 07/23/24 08:24 98.2 80 16 166/58 98 Room Air 0 07/23/24 08:36 21 Physical Exam Dictation General: awake, alert, NAD Head/Face: Normocephalic, atraumatic Eyes: PERRL, EOMI, vision at baseline ENT: oral cavity clear, TMs clear, no signs of infection Neck: Trachea midline, supple, no nuchal rigidity Cardiovascular: RRR, normal S1/S2, No MRGs, no JVD Respiratory: CTAB, no respiratory distress, No rales or wheezes Abdomen: Soft, non-tender, non-distended, normal bowel sounds, no guarding or rebound. Skin: Warm, dry, normal turgor, no rash MS/Extremity: Pulses equal, no cyanosis, neurovascular intact, FROM Neuro: COAx4, GCS 15, strength 5/5, CN 2-12 intact, normal cerebellar exam, normal gait, Psych: Normal behavior, mood, and affect normal Results (Laboratory/Radiology) Laboratory/Radiology Laboratory Tests Test 07/23/24 08:43 White Blood Count 5.3 K/uL (4.8-10.8) Red Blood Count 3.65 MIL/uL (4.00-5.50) L Hemoglobin 11.1 g/dL (12.0-16.0) L Hematocrit 33.5 % (36-48) L Mean Corpuscular Volume 91.8 fL (79-99) Mean Corpuscular Hemoglobin 30.4 pg (27.0-33.0) Mean Corpuscular Hemoglobin Concent 33.1 g/dL (32.0-36.0) Red Cell Distribution Width 13.0 % (11.0-15.5) Platelet Count 225 K/uL (130-400) Mean Platelet Volume 9.5 fL (7.5-10.5) Immature Granulocyte % (Auto) 0.4 % (0-1) Neutrophils (%) (Auto) 68.1 % (40.0-77.0) Lymphocytes (%) (Auto) 21.9 % (21.0-51.0) Monocytes (%) (Auto) 6.6 % (3.0-13.0) Eosinophils (%) (Auto) 2.6 % (0.0-8.0) Basophils (%) (Auto) 0.4 % (0.0-5.0) Neutrophils # (Auto) 3.6 K/uL (1.8-7.7) Lymphocytes # (Auto) 1.2 K/uL (1.0-4.8) Monocytes # (Auto) 0.4 K/uL (0.1-1.0) Eosinophils # (Auto) 0.14 K/uL (0.00-0.70) Basophils # (Auto) 0.02 K/uL (0.00-0.20) Absolute Immature Granulocyte (auto 0.02 K/uL (0-1) Nucleated Red Blood Cells 0.0 % (0.0-0.19) Sodium Level 142 mmol/L (136-145) Potassium Level 4.3 mmol/L (3.5-5.1) Chloride Level 106 mmol/L (101-111) Carbon Dioxide Level 24 mmol/L (21-32) Blood Urea Nitrogen 32 mg/dL (7-18) H Creatinine 1.7 mg/dL (0.5-1.0) H Glomerular Filtration Rate Calc 31 mL/min (>90) Random Glucose 181 mg/dL (70-105) H Total Calcium 8.5 mg/dL (8.5-10.1) Troponin I High Sensitivity 6 ng/L (4-50) Labs Reviewed?: Yes CT Scan Comment: REASON: BALL ORDERING PHYSICIAN: LUCHO SPICER MD PROCEDURE: HEAD WO - CT HEAD/BRAIN W/O CONTRAST Exam Type: CT HEAD/BRAIN W/O CONTRAST Clinical Information: BALL Comparison: None CT Dose Index (CTDI): 57.33 mGy Dose Length Product (DLP): 956.79 total mGy-cm Findings: The examination shows atrophy. There is low attenuation throughout the periventricular white matter locations, consistent with chronic small vessel ischemic changes. No acute intra- or extra-axial fluid collections are seen. There is no evidence of acute or chronic hemorrhage. There is no mass effect or shift of midline structures. There are no areas to suggest acute infarct. The skull windows show no significant abnormalities. IMPRESSION: 1. ATROPHY AND CHRONIC SMALL VESSEL ISCHEMIC CHANGES. This study was performed using dose reduction techniques to include automated exposure control and/or adjustment of the mA and/or kV according to patient size. DICTATED BY: LAUREN LYMAN MD DATE: 07/23/24912 ED Course ED Course Orders Procedure Category Date Status Time 12 Lead Ekg Tracing- EKG 07/23/24 Complete Technical 08:33 Basic Metabolic Panel LAB 07/23/24 Complete 08:33 Cbc With Differential LAB 07/23/24 Complete 08:33 Troponin I High LAB 07/23/24 Complete Sensitivity 08:33 Ct Head/Brain W/O CT 07/23/24 Resulted Contrast 08:33 0.9%Nacl 1000ml (Ns PHA 07/23/24 Complete 1000ml) 09:00 Acetaminophen 500mg PHA 07/23/24 Complete Tab (Tylenol 500mg T 09:00 Current Medications Medications (Trade) Dose Ordered Sig/Candy Route PRN Reason Start Time Stop Time Status Last Admin Dose Admin Acetaminophen (TYLenol 500MG TAB) 1,000 mg ONCE ONCE PO 07/23/24 09:00 07/23/24 09:01 DC 07/23/24 09:20 Sodium Chloride 1,000 ml @ 0 mls/hr ONCE ONCE IV 07/23/24 09:00 07/23/24 09:01 DC 07/23/24 09:19 Vital Signs Date Time Temp Pulse Resp B/P (MAP) Pulse Ox O2 Delivery O2 Flow Rate FiO2 07/23/24 09:57 52 16 156/63 99 Room Air* 0 21 07/23/24 08:36 98.2 71 16 158/53 98 Room Air* 0 21 07/23/24 08:24 98.2 80 16 166/58 98 Room Air 0 Medical Decision Making MDM MDM: Differential diagnosis: Headache, hyperglycemia Risk of complication and/or morbidity or mortality of patient management: None Medications-Per medication reconciliation Need for hospitalization: Patient does not meet criteria for hospitalization. Need for emergency major/minor surgery: No There are no social concerns with this patient. Prescription drug management Prescriptions will include symptomatic care I independently interpreted the test that were performed, results were reviewed by me and considered findings on radiology if ordered. DX & DISP Disposition: Discharge Departure Impression: Primary Impression: Hyperglycemia Additional Impression: Acute headache Condition: Stable Referrals: CHANDLER LANCE MD (PCP) LUCHO SPICER MD July 23, 2024 09:21
[2024-07-23 09:57] VITALS: BP 156/63; PULSE 52; RESP 16; O2SAT 99
== END 2024-07-23 11:19 | disposition home or self-care (01) ==
LOC: EDH 08:22
DX: E11.65 Type 2 diabetes mellitus with hyperglycemia (principal); E11.59 Type 2 diabetes mellitus with other circulatory complications; E78.00 Pure hypercholesterolemia, unspecified; I10 Essential (primary) hypertension; Z79.02 Long term (current) use of antithrombotics/antiplatelets; Z79.82 Long term (current) use of aspirin; Z79.84 Long term (current) use of oral hypoglycemic drugs; Z79.899 Other long term (current) drug therapy; Z85.028 Personal history of other malignant neoplasm of stomach; Z95.1 Presence of aortocoronary bypass graft
CPT/HCPCS: 99284; 96360; 70450; 84484; 80048; 85025; 36415; 93005; J7030

== ENCOUNTER → 2024-10-05 | Outpatient (CLI) | payer OTHER ==
[~2024-10-05] VITALS: Ht 147.3 cm; Wt 53.6 kg
[~2024-10-05] MED LIST changes: +0.9%NACL 1000ML 1,000 ML IV SCH; +EMPA10TA PO; +LINA5TAB PO; +MIDAZOLAM HCL 1 MG/ML 2ML VIAL ONE; +NITR0.4T50 SL
[2024-10-05 12:26] LABS: IMMATURE GRANULOCYTE ABSOLUTE 0.02 K/uL (0-1); NUCLEATED RED BLOOD CELLS 0.0 % (0.0-0.19); PLATELET COUNT (AUTO) 228 K/uL (130-400); RED BLOOD CELL COUNT(AUTO) 3.51 MIL/uL (4.00-5.50); RED CELL DISTRIBUTION WIDTH 13.2 % (11.0-15.5); WHITE BLOOD COUNT (AUTO) 7.1 K/uL (4.8-10.8)
[2024-10-05 12:40] LABS: APPEARANCE,URINE CLOUDY (CLEAR); GLUCOSE, URINE (UA) >=1000 mg/dL (NEGATIVE); LEUKOCYTE ESTERASE ,URINE 500 Leu/uL (NEGATIVE); NITRATE,URINE NEGATIVE (NEGATIVE); OCCULT BLOOD,URINE NEGATIVE (NEGATIVE)
[2024-10-05 12:41] LABS: INR <= 0.93 (0.85-1.15)
[2024-10-05 12:41] LABS: ADD UA MICROSCOPIC YES; SQUAMOUS EPITHELIAL CELL,UR RARE /HPF (0-2); WBC CLUMP MANY /HPF (0-1)
[2024-10-05 12:45] LABS: CREATININE 1.5 mg/dL (0.5-1.0); GLOMERULAR FILTR. RATE CALC 36.0 mL/min (>90); GLUCOSE,RANDOM 183.0 mg/dL (70-105); SODIUM SERUM 140.0 mmol/L (136-145); UREA NITROGEN, BLOOD 47.0 mg/dL (7-18)
--- NOTE | 2024-10-05 12:49 | NUR ---
REPORT DR EDDY INFORMED PT STOP TAKING BLOOD THINNERS SINCE TUESDAY. RECEIVED INSTRUCTIONS TO HAVE PT RESUME TODAY AND OK TO PROCEED WITH PROCEDURE. LINO LI LVN INFORMED AND WILL INSTRUCT PT.
[2024-10-05 13:01] VITALS: BP 189/79; PULSE 67; RESP 18; TEMP 97
--- NOTE | 2024-10-05 13:01 | NUR ---
BLOOD PRESSURE SITTING DOWN AUTOMATIC BLOOD PRESSURE 189/79. CHECKED BLOOD PRESSURE MANUALLY RIGHT ARM LAYING DOWN 190/60. PATIENT DID NOT REPORT ANY PAIN OR DIZZINESS. RECOMMENDED PATIENT GO TO EMERGENCY ROOM. PATIENT STATED "LAST TIME I CAME I SAT IN THE ER FOR HIGH BLOOD PRESSURE AND THEY DID NOT GIVE ME ANY PILL OR DO ANYTHING, BUT I RECEIVED A $140 BILL. PATIENT DENIED THE EMERGENCY ROOM AND STATED SHE WOULD TAKE CLONIDINE.
--- NOTE | 2024-10-05 14:22 | HMCIMG ---
EXAM: CR Chest, 1 View. CLINICAL HISTORY: TCAR COMPARISON: None provided. FINDINGS: LUNGS: There is no mass, infiltrate, or acute pulmonary abnormality. PLEURAL SPACES: No evidence of pleural effusion or pneumothorax. MEDIASTINUM: Prior sternotomy. Cardiac size and mediastinal contours within normal limits. BONES: No acute osseous abnormality. IMPRESSION: No acute cardiopulmonary pathology is evident. /[place]
--- NOTE | 2024-10-05 14:59 | NUR ---
report reported cbc and bmp and ua to florentin mendoza np. ok to proceed Addendum: 10/05/24 at 1641 by RYLEE ROBERTS RN RN FLORENTIN MENDOZA NP CALLED BACK AND REPORTED SHE WILL CALL IN ANTIBIOTIC FOR PT FOR UA. PT NOTIFIED AND VOICED UNDERSTANDING
--- NOTE | 2024-10-05 21:29 | EKG ---
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
[2024-10-08] MEDS: 0.9%NACL 1000ML 1,000 ML IV ONE (06:31)
[2024-10-08 06:33] VITALS: BP 158/57; PULSE 54; RESP 18; TEMP 97.4
--- NOTE | 2024-10-08 06:53 | NUR ---
ENDOCRINE: OMA OROZCO HOGSHEAD HAND MADE AWARE OF BLOOD SUGAR 278, NO ORDERS GIVEN.
--- NOTE | 2024-10-08 07:40 | NUR ---
Procedure cancelled per Dr Steel due to possible infection in urine culture. Dr Steel spoke with pt and pt family asking them to follow up with primary docture to treat urine infection and to follow up with him to reschedule procedure. Pt and pt family voiced understanding, IV discontinued at this time and pt left home.
== END | disposition home or self-care (01) ==
LOC: DAH 11:42 → EDSTATUS 12:00 → UNDOADMIN 10-08 05:30 → DAHIP 10-08 05:30
PROVIDERS: ATTEND Internal Medicine Cardiovascular Disease
DX: I65.22 Occlusion and stenosis of left carotid artery (principal); Z79.899 Other long term (current) drug therapy
CPT/HCPCS: 36415; 71045; 80048; 81001; 82948; 85025; 85610; 85730; 86850; 86900; 86901; 86923; 87086; 87186; 93005

== ENCOUNTER 2024-10-08 15:14 | Observation (INO) | payer OTHER ==
[~2024-10-08] VITALS: Ht 154.9 cm; Wt 54.0 kg
[~2024-10-08 15:14] MED LIST changes: +0.9%NACL 1000ML 1,000 ML IV ONE; -0.9%NACL 1000ML 1,000 ML IV SCH; -MIDAZOLAM HCL 1 MG/ML 2ML VIAL ONE
--- NOTE | 2024-10-08 15:33 | ERN ---
General Chief Complaint: Abnormal Labs Stated Complaint: ABN URINE CULTURE Time Seen by MD: 15:17 Source: patient History of Present Illness Initial Comments PATIENT IS A 78-YEAR-OLD FEMALE COMING IN TO BE EVALUATED FOR HE HAS BEEN ILL POSITIVE UTI. PATIENT HAS A HAS BEEN ON MACROBID BUT WAS TOLD BY PCP TO COME IN DUE TO UTI ESBL POSITIVE AND ALLERGIC TO MANY OF THE ANTIBIOTICS. Allergies: Coded Allergies: amoxicillin (Unverified Allergy, Unknown, 10/05/24) atorvastatin (Unverified Allergy, Unknown, 10/05/24) ezetimibe (Unverified Allergy, Unknown, NOT ALLERGIC, PT TAKING MEDICATION, 10/08/24) propoxyphene (Unverified Allergy, Unknown, 10/05/24) Home Meds Reported Medications Linagliptin (Tradjenta) 5 Mg Tablet, 5 MG PO AM, TAB 10/05/24 Empagliflozin (Jardiance) 10 Mg Tablet, 10 MG PO AM, TAB 10/05/24 Nitroglycerin (Nitroglycerin) 0.4 Mg Tab.subl, 0.4 MG SL AD for CHEST PAIN , TAB.SL 10/05/24 Clonidine HCl (Clonidine HCl) 0.1 Mg Tablet, 0.1 MG PO EVERY 8 HOURS, TAB 04/05/24 Atorvastatin Calcium (LIPITOR) 20 Mg Tab, 1 TAB PO DAILY for 30 Days, #30 TAB 0 Refills 04/05/24 Lisinopril (Lisinopril) 20 Mg Tablet, 1 TAB PO DAILY for 30 Days, #30 TAB 0 Refills 04/05/24 Amlodipine Besylate (Amlodipine Besylate) 5 Mg Tablet, 5 MG PO BID, TAB 04/05/24 Aspirin (Aspirin) 81 Mg Tab.chew, 81 MG PO DAILY, TAB.CHEW 02/07/19 [place]-3 Fatty Acids/Fish Oil ([place] 3 1,000 mg Softgel) 1 Each Capsule, 1 EACH PO HS, CAP 02/07/19 Glipizide (Glipizide) 5 Mg Tablet, 5 MG PO DAILY, TAB 02/07/19 Ezetimibe (Ezetimibe) 10 Mg Tablet, 10 MG PO DAILY, TAB 02/07/19 Clopidogrel Bisulfate (Clopidogrel) 75 Mg Tablet, 75 MG PO DAILY, TAB 02/07/19 Discontinued Reported Medications Sitagliptin Phosphate (Januvia) 100 Mg Tablet, 1 TAB PO DAILY for 30 Days, #30 TAB 0 Refills 04/05/24 [COq10] No Conflict Check, 100 MG PO AM 04/05/24 Past Medical History Past Medical History: Cancer, Diabetes-Type II, High Cholesterol, Heart Disease, Hypertension, Vascular Disease Medical History Other: HX STOMACH CA Past Surgical History: CABG Surgical History Other: LEG STENTS ROS Dictation CONSTITUTIONAL: NO CHILLS, NO FEVER, NO WEAKNESS, NO DIAPHORESIS, NO MALAISE. HEAD/FACE: NO SIGNS OF TRAUMA. EENT: NO EYE PAIN, NO BLURRED VISION, NO TEARING, NO DOUBLE VISION, NO EAR PAIN, NO EAR DISCHARGE, NO NOSE PAIN, NO NASAL CONGESTION, NO THROAT PAIN, NO THROAT SWELLING, NO MOUTH PAIN. RESPIRATORY: NO COUGH, NO ORTHOPNEA, NO SOB, NO STRIDOR, NO WHEEZING. CARDIOVASCULAR: NO CHEST PAIN, NO EDEMA, NO PALPITATIONS, NO SYNCOPE. GASTROINTESTINAL/ABDOMINAL: NO ABDOMINAL PAIN, NO CONSTIPATION, NO DIARRHEA, NO NAUSEA, NO VOMITING. GENITOURINARY: NO ABNORMAL DISCHARGE, NO DYSURIA, NO FREQUENT URINATION, NO HEMATURIA. NO COMPLAINTS OF PAIN IN THE GENITALS. MUSCULOSKELETAL: NO BACK PAIN, NO GOUT, NO JOINT PAIN, NO JOINT SWELLING, NO MUSCLE PAIN, NO MUSCLE STIFFNESS, NO NECK PAIN. INTEGUMENTARY: NO CHANGE IN COLOR, NO CHANGE IN HAIR/NAILS, NO DRYNESS, NO LESION, NO LUMPS, NO RASH. NEUROLOGICAL/PSYCH: NO ANXIETY, NOT DEPRESSED, NO EMOTIONAL PROBLEM, NO HEADACHE, NO NUMBNESS, NO PRE-EXISTING DEFICIT, NO HISTORY OF SEIZURES, NO TR EMORS, NO WEAKNESS. HEMATOLOGIC/LYMPHATIC: NOT ANEMIC, NO HISTORY OF BLOOD CLOTS, NO APPARENT BLEEDING, NO BRUISING, GLANDS NOT SWOLLEN. ALL SYSTEMS NEGATIVE, EXCEPT NOTED. Physical Exam Physical Exam Dictation VITAL SIGNS: REVIEWED. GENERAL APPEARANCE: ALERT, ORIENTED X3, NO ACUTE DISTRESS, OBESE. HEAD AND FACE: NON-TRAUMATIC. EYES: PERRL, PINK CONJUNCTIVAS, EYELID NO TRAUMA, ANTERIOR CHAMBER CLEAR. EARS: PINNAS INTACT AND NO SIGNS OF TRAUMA OR ERYTHEMA. EAR CANALS CLEAR AND NO DISCHARGE. TMS NO ERYTHEMA. NOSE: NO DISCHARGE, NO BLEEDING. OROPHARYNX: MOUTH NORMAL, TEETH NO CARIES, TONGUE PINK. PHARYNX CLEAR, NO ERYTHEMA. TONSILS NO EXUDATES, NO ABSCESSES NOTED. MUCOUS MEMBRANE MOIST. NECK: SUPPLE, NON-TENDER, NO THYROMEGALY, NO MASSES, NO JVD, NO BRUITS. BREAST: DEFERRED. CHEST: NO TENDERNESS, NO CREPITUS, NO PARADOXICAL MOVEMENT, NO RETRACTIONS. LUNGS: CLEAR, WELL-VENTILATED, SYMMETRIC, NO RALES, NO WHEEZING, NO RHONCHI, NO STRIDOR, GOOD BREATH SOUNDS BILATERALLY. HEART: REGULAR RATE, REGULAR RHYTHM, NO MURMUR, NO GALLOPS. VASCULAR: NO PERIPHERAL EDEMA. ABDOMEN: SOFT, POSITIVE BOWEL SOUNDS, NONDISTENDED, NO GUARDING, NONTENDER, NO REBOUND, NO MASSES NO HEPATOMEGALY, NO SPLENOMEGALY, NO SHUKLA'S SIGN, NO HERNIAS. RECTAL: DEFERRED. GENITAL: DEFERRED. NEUROLOGICAL: NORMAL SPEECH, GROSS MOTOR FUNCTION INTACT, GROSS SENSORY FUNCTION INTACT. MUSCULOSKELETAL: NECK NONTENDER, FULL RANGE OF MOTION, BACK NONTENDER, FULL RANGE OF MOTION. EXTREMITIES: NONTENDER, FULL RANGE OF MOTION. SKIN: COLOR PINK, DRY, NO TURGOR, NO RASH, NO LACERATIONS, NO ABRASIONS, NO CONTUSIONS. LYMPHATICS: DEFERRED. Results Laboratory and Microbiology Lab and Micro Result Laboratory Tests Test 10/08/24 15:56 10/08/24 18:07 White Blood Count 5.1 K/uL (4.8-10.8) Red Blood Count 3.13 MIL/uL (4.00-5.50) L Hemoglobin 9.6 g/dL (12.0-16.0) L Hematocrit 29.4 % (36-48) L Mean Corpuscular Volume 93.9 fL (79-99) Mean Corpuscular Hemoglobin 30.7 pg (27.0-33.0) Mean Corpuscular Hemoglobin Concent 32.7 g/dL (32.0-36.0) Red Cell Distribution Width 13.3 % (11.0-15.5) Platelet Count 205 K/uL (130-400) Mean Platelet Volume 9.8 fL (7.5-10.5) Immature Granulocyte % (Auto) 0.4 % (0-1) Neutrophils (%) (Auto) 71.8 % (40.0-77.0) Lymphocytes (%) (Auto) 15.5 % (21.0-51.0) L Monocytes (%) (Auto) 8.0 % (3.0-13.0) Eosinophils (%) (Auto) 3.7 % (0.0-8.0) Basophils (%) (Auto) 0.6 % (0.0-5.0) Neutrophils # (Auto) 3.7 K/uL (1.8-7.7) Lymphocytes # (Auto) 0.8 K/uL (1.0-4.8) L Monocytes # (Auto) 0.4 K/uL (0.1-1.0) Eosinophils # (Auto) 0.19 K/uL (0.00-0.70) Basophils # (Auto) 0.03 K/uL (0.00-0.20) Absolute Immature Granulocyte (auto 0.02 K/uL (0-1) Nucleated Red Blood Cells 0.0 % (0.0-0.19) Sodium Level 138 mmol/L (136-145) Potassium Level 4.2 mmol/L (3.5-5.1) Chloride Level 104 mmol/L (101-111) Carbon Dioxide Level 25 mmol/L (21-32) Blood Urea Nitrogen 55 mg/dL (7-18) H Creatinine 1.9 mg/dL (0.5-1.0) H Glomerular Filtration Rate Calc 27 mL/min (>90) Random Glucose 296 mg/dL (70-105) H Total Calcium 9.1 mg/dL (8.5-10.1) Urine Color YELLOW (YELLOW) Urine Appearance SL CLOUDY (CLEAR) Urine pH 6.0 (5.0-8.0) Urine Specific [place] 1.015 (1.001-1.031) Urine Protein NEGATIVE mg/dL (NEGATIVE) Urine Glucose (UA) >=1000 mg/dL (NEGATIVE) H Urine Ketones NEGATIVE mg/dL (NEGATIVE) Urine Occult Blood TRACE-INTACT (NEGATIVE) H Urine Nitrate POSITIVE (NEGATIVE) H Urine Bilirubin NEGATIVE mg/dL (NEGATIVE) Urine Urobilinogen 0.2 mg/dL (0.2-1.0) Urine Leukocyte Esterase SMALL Tisha/uL (NEGATIVE) H Labs Reviewed?: Yes MDM MDM: DIFFERENTIAL DIAGNOSIS: UTI, FAILED OUTPATIENT TREATMENT, RATIONALE: TESTS CONSIDERED AND ORDERED SECONDARY TO SHARED DECISION MAKING INCLUDE: PREVIOUS OUTSIDE RECORDS REVIEWED: OLD ER VISITS. RISK OF COMPLICATION AND/OR MORBIDITY OR MORTALITY OF PATIENT MANAGEMENT: NONE MEDICATIONS-PER MEDICATION RECONCILIATION NEED FOR HOSPITALIZATION: PATIENT DOES MEET CRITERIA FOR HOSPITALIZATION. NEED FOR EMERGENCY MAJOR/MINOR SURGERY: NO THERE ARE NO SOCIAL CONCERNS WITH THIS PATIENT. PRESCRIPTION DRUG MANAGEMENT PRESCRIPTIONS WILL INCLUDE SYMPTOMATIC CARE PATIENT'S PRIOR EXTERNAL MEDICAL RECORDS FROM OTHER ER VISITS WERE REVIEWED BY ME INDICATED. PRIOR TESTING AND RESULTS FROM PREVIOUS VISITS WERE REVIEWED. PRIOR TESTS WERE TAKEN INTO ACCOUNT WITH MEDICAL DECISION MAKING AND RESOURCE UTILIZATION, INDEPENDENT HISTORIAN/HISTORIANS WERE USED TO OBTAIN COMPLETE MEDICAL HISTORY. I INDEPENDENTLY INTERPRETED THE TEST THAT WERE PERFORMED, RESULTS WERE REVIEWED BY ME AND CONSIDERED FINDINGS ON RADIOLOGY IF ORDERED. MEDICAL MANAGEMENT AND EXAMINATION INTERPRETATION DISCUSSIONS WERE HAD BY ME W ITH OTHER QUALIFIED HEALTHCARE PROFESSIONALS INDICATED FOR THE PATIENT'S CARE. PATIENT WILL BE ADMITTED UNDER THE CARE OF HOSPITALIST GROUP FOR ONGOING MANAGEMENT ED Course Orders Procedure Category Date Status Time Cbc With Differential LAB 10/08/24 Complete 15:29 Basic Metabolic Panel LAB 10/08/24 Complete 15:29 Urinalysis LAB 10/08/24 In Process W/Microscopic 15:29 Vital Signs Date Time Temp Pulse Resp B/P (MAP) Pulse Ox O2 Delivery O2 Flow Rate FiO2 10/08/24 15:16 97.9 67 16 178/78 99 Room Air 0 DX & DISP Disposition: Inpatient Decision to Admit Time: 18:43 Departure Impression: Primary Impression: UTI (urinary tract infection) Additional Impression: ESBL (extended spectrum beta-lactamase) producing bacteria infection Condition: Stable Referrals: CHANDLER LANCE MD (PCP) FRANKLIN PHILLIPS MD Oct 08, 2024 15:33
[2024-10-08 16:08] LABS: IMMATURE GRANULOCYTE ABSOLUTE 0.02 K/uL (0-1); NUCLEATED RED BLOOD CELLS 0.0 % (0.0-0.19); PLATELET COUNT (AUTO) 205 K/uL (130-400); RED BLOOD CELL COUNT(AUTO) 3.13 MIL/uL (4.00-5.50); RED CELL DISTRIBUTION WIDTH 13.3 % (11.0-15.5); WHITE BLOOD COUNT (AUTO) 5.1 K/uL (4.8-10.8)
[2024-10-08 16:20] LABS: CREATININE 1.9 mg/dL (0.5-1.0); GLOMERULAR FILTR. RATE CALC 27.0 mL/min (>90); GLUCOSE,RANDOM 296.0 mg/dL (70-105); SODIUM SERUM 138.0 mmol/L (136-145); UREA NITROGEN, BLOOD 55.0 mg/dL (7-18)
[2024-10-08 18:27] LABS: APPEARANCE,URINE SL CLOUDY (CLEAR); GLUCOSE, URINE (UA) >=1000 mg/dL (NEGATIVE); LEUKOCYTE ESTERASE ,URINE SMALL Leu/uL (NEGATIVE); NITRATE,URINE POSITIVE (NEGATIVE); OCCULT BLOOD,URINE TRACE-INTACT (NEGATIVE)
[2024-10-08 18:49] LABS: NON-SQUAMOUS EPITHELIAL CELL 1 /HPF (0-2); SQUAMOUS EPITHELIAL CELL,UR FEW /HPF (0-2); UNCLASSIFIED CRYSTAL 3 /HPF (None Seen); WBC CLUMP FEW /HPF (0-1); YEAST,URINE BUDDING FEW /HPF (None Seen)
[2024-10-08] MEDS ORDERED: MEROPENEM 1GM 1 GM VIAL IV SCH (19:00)
--- NOTE | 2024-10-08 19:17 | HP ---
[facility] HISTORY [facility] PHYSICAL Date of Service: Oct 08, 2024 Time of Service: 19:17 Attending/ Supervising physicians: Dr. Oneal and Dr. Caroline Pichardo HISTORY OF PRESENT ILLNESS: Ms. Pink is a 78-year-old female with history of stomach cancer, Diabetes-Type II, High Cholesterol, Heart Disease, Hypertension, Vascular Disease who presented to [facility] [place] [facility] for evaluation of positive UTI. The patient reported that she has been on Macrobid but her PCP told her to come to the ED for treatment of UTI w + culture for ESBL. The patient is allergic to amoxicillin. Labs: WBCs WNL. BUN 55, creatinine 1.9, GFR 27. UA: Positive for nitrites and leukocyte esterase. ED provider reports that patient has had failed outpatient antibiotic therapy and requests patient be admitted with the diagnosis of UTI, ESBL producing bacterial infection. I assessed the patient at bedside in ED 5. No family member at bedside. The patient appeared comfortable, breathing was even, unlabored, in no distress. I informed the patient of labs, diagnostics, and plan of care. She verbalized understanding and is in agreement with the plan. Plan and assessment are listed below. REVIEW OF SYSTEMS 12-point ROS reviewed with the patient. All pertinent positives mentioned above. Otherwise negative, noncontributory, non-pertinent. PAST MEDICAL HISTORY: As mentioned above PAST SURGICAL HISTORY: CABG, legs stents PAST SOCIAL HISTORY: Denies alcohol, tobacco, illicit drug use FAMILY HISTORY: Noncontributory Coded Allergies: amoxicillin (Unverified Allergy, Unknown, 10/05/24) atorvastatin (Unverified Allergy, Unknown, 10/05/24) ezetimibe (Unverified Allergy, Unknown, NOT ALLERGIC, PT TAKING MEDICATION, 10/08/24) propoxyphene (Unverified Allergy, Unknown, 10/05/24) PHYSICAL EXAM GENERAL APPEARANCE: The patient is awake, alert, and oriented, in no acute cardiopulmonary distress. NEUROLOGICAL: Cranial nerves II-XII grossly intact. Motor is 5/5 in bilateral upper and lower extremities proximal to distal. No sensory deficits. HEENT: Face is symmetric. Pupils are equal and reactive. Extraocular movements are intact. NECK: Supple. No JVD. No thyromegaly. No submental, submandibular, pre- /postauricular, occipital or supraclavicular lymphadenopathy. CHEST: Normal chest expansion. No Telemetry. LUNGS: Absence of any rales, rhonchi or any wheezing. CARDIOVASCULAR: Regular. S1 and S2 normal. No appreciable rubs, murmurs or gallops. ABDOMEN: Soft, nontender, and nondistended. There is no rebound, voluntary guarding, or rigidity. : Deferred. No Shankar. EXTREMITIES: Non-edematous and not cyanotic. No clubbing. Good capillary refill. SKIN: No skin breakdown. Vital Sign (Last 24 Hours) 10/08/24 15:16 Temp 97.9 Pulse 67 Resp 16 B/P (MAP) 178/78 Pulse Ox 99 O2 Delivery Room Air O2 Flow Rate 0 LABS: Laboratory: Test 10/08/24 18:07 10/08/24 15:56 Range/Units Urine Color YELLOW YELLOW Urine Appearance SL CLOUDY CLEAR Urine pH 6.0 5.0-8.0 Urine Specific [place] 1.015 1.001-1.031 Urine Protein NEGATIVE NEGATIVE mg/dL Urine Glucose (UA) >=1000 H NEGATIVE mg/dL Urine Ketones NEGATIVE NEGATIVE mg/dL Urine Occult Blood TRACE-INTACT H NEGATIVE Urine Nitrate POSITIVE H NEGATIVE Urine Bilirubin NEGATIVE NEGATIVE mg/dL Urine Urobilinogen 0.2 0.2-1.0 mg/dL Urine Leukocyte Esterase SMALL H NEGATIVE Tisha/uL Urine RBC 11-25 H 0-1 /HPF Urine WBC >100 H 0-1 /HPF Urine WBC Clumps (Auto) FEW 0-1 /HPF Urine Squamous Epithelial Cells FEW 0-2 /HPF Urine Non-Squamous Epithelial Cells 1 0-2 /HPF Urine Other Crystals (Auto) 3 None Seen /HPF Urine Bacteria FEW None Seen /HPF Urine Yeast FEW None Seen /HPF White Blood Count 5.1 4.8-10.8 K/uL Red Blood Count 3.13 L 4.00-5.50 MIL/uL Hemoglobin 9.6 L 12.0-16.0 g/dL Hematocrit 29.4 L 36-48 % Mean Corpuscular Volume 93.9 79-99 fL Mean Corpuscular Hemoglobin 30.7 27.0-33.0 pg Mean Corpuscular Hemoglobin Concent 32.7 32.0-36.0 g/dL Red Cell Distribution Width 13.3 11.0-15.5 % Platelet Count 205 130-400 K/uL Mean Platelet Volume 9.8 7.5-10.5 fL Immature Granulocyte % (Auto) 0.4 0-1 % Neutrophils (%) (Auto) 71.8 40.0-77.0 % Lymphocytes (%) (Auto) 15.5 L 21.0-51.0 % Monocytes (%) (Auto) 8.0 3.0-13.0 % Eosinophils (%) (Auto) 3.7 0.0-8.0 % Basophils (%) (Auto) 0.6 0.0-5.0 % Neutrophils # (Auto) 3.7 1.8-7.7 K/uL Lymphocytes # (Auto) 0.8 L 1.0-4.8 K/uL Monocytes # (Auto) 0.4 0.1-1.0 K/uL Eosinophils # (Auto) 0.19 0.00-0.70 K/uL Basophils # (Auto) 0.03 0.00-0.20 K/uL Absolute Immature Granulocyte (auto 0.02 0-1 K/uL Nucleated Red Blood Cells 0.0 0.0-0.19 % Sodium Level 138 136-145 mmol/L Potassium Level 4.2 3.5-5.1 mmol/L Chloride Level 104 101-111 mmol/L Carbon Dioxide Level 25 21-32 mmol/L Blood Urea Nitrogen 55 H 7-18 mg/dL Creatinine 1.9 H 0.5-1.0 mg/dL Glomerular Filtration Rate Calc 27 >90 mL/min Random Glucose 296 H 70-105 mg/dL Total Calcium 9.1 8.5-10.1 mg/dL Current Medications Medications (Trade) Dose Ordered Sig/Candy Route PRN Reason Start Time Stop Time Status Last Admin Dose Admin Meropenem (Merrem 1gm) 1 gm ONCE IV 10/08/24 19:00 10/08/24 23:59 Meropenem (Merrem 500mg) 500 mg Q8H6 IV 10/09/24 06:00 10/17/24 05:59 DIAGNOSTICS / RADIOLOGY: [ ] ASSESSMENT: Acute complicated cystitis with + ESBL, per outpatient results Failed outpatient oral antibiotic therapy, POA Anemia chronic disease JAN, GFR27 Acute on chronic kidney disease, GFR 27 (GFR 36 on 10/05/2024, prior recorded GFR 65 was on 10/12/2021) Diabetes mellitus with hyperglycemia, A1c 7.8 Chronic problem list: Stomach cancer, diabetes mellitus type 2, hypercholesteremia, CAD, heart disease s/p CABG, LVEF 72% per Lexiscan on 11/17, hypertension, peripheral vascular disease s/p lower extremity stents PLAN: -Admit to Medical floor. -Continue Merrem 500 mg IV q.12 hours per renal dose. -LR at 75 mL/ hour. -Follow urine cultures. -P.r.n. medications for pain management, nausea, vomiting, constipation, hypertension, fever. -Consult Nephrology for acute on chronic kidney disease. -Reconciled/started home medications: Clonidine prn, nitroglycerin, prn, amlodipine, atorvastatin, lisinopril, aspirin, Plavix, Ezetimibe, omega-3. -Hold home medications glipizide, Jardiance, Tradjenta and start insulin sliding scale for now. -Glucometer checks AC & HS needed with insulin regular sliding scale coverage as needed. - Monitor renal and liver function. -Monitor electrolytes and treat accordingly PRN. -Monitor respiratory status. -Oxygen therapy as needed. Titrate oxygen prn to keep Spo2>/+=92%. -Blood pressure checks every 4 hours and as needed. -AM labs. -GI and DVT prophylaxis -Further plan/orders per hospitalization course. ADVANCED CARE PLANNING 1. Which of the following were discussed? Hospice Care - No Therapeutic options - Yes Advance Directives - Yes Other discussions - 2. Discussed with who? The patient 3. Voluntary nature of this service was explained to the patient? Yes 4. Amount of time spent - _ critical care time: Over 35 minutes 5. Reviewed by Physician? (if this service was performed by AMY) Yes ATTESTATION BY PHYSICIAN I reviewed the documentation, medical decision making, and treatment plan as noted by the AMY above. I agree with the findings and plan of care. SUMIT [facility] Oct 08, 2024 19:17
[2024-10-08] MEDS ORDERED: HYDROcodone/APAP 5/325 1 TAB TABLET PO PRN (19:30)
[2024-10-08] MEDS ORDERED: LACTULOSE 20 GM/30 ML UDCUP PO PRN (19:30)
[2024-10-08] MEDS ORDERED: PoTASSium chloRIDE 20MEQ ER 20 MEQ ERTAB PO PRN (19:30)
[2024-10-08] MEDS ORDERED: PoTASSium chl 10% ELIXIR 20MEQ 20 MEQ/15 ML UDCUP PO PRN (19:30)
[2024-10-08] MEDS ORDERED: MAGNESIUM 2GM PREMIX 50ML 50 ML IV PRN (19:30)
[2024-10-08] MEDS ORDERED: DEXTROSE 50%-WATER 50 ML DISP.SYRIN IV PRN (19:30)
[2024-10-08] MEDS ORDERED: GLUCAGON 1MG KIT 1 MG ML IM PRN (19:30)
[2024-10-08] MEDS: LACTATED RINGERS 1000ML 1,000 ML IV ONE (19:41)
[2024-10-09] VITALS (7 sets, daily range): BP systolic 143–165; BP diastolic 45–66; PULSE 55–69; RESP 18–19; TEMP 97.8–98.6; O2SAT 96–97
[2024-10-09] MEDS ORDERED: CLON0.1T PO ×2 (00:59)
[2024-10-09] MEDS ORDERED: GLIP5TAB15 PO ×2 (00:59)
[2024-10-09] MEDS ORDERED: NITROGLYCERIN 0.4 MG SL TAB SL SCH (03:00)
[2024-10-09 05:23] LABS: NUCLEATED RED BLOOD CELLS 0.0 % (0.0-0.19); PLATELET COUNT (AUTO) 195.0 K/uL (130-400); RED BLOOD CELL COUNT(AUTO) 3.03 MIL/uL (4.00-5.50); RED CELL DISTRIBUTION WIDTH 13.2 % (11.0-15.5); WHITE BLOOD COUNT (AUTO) 5.4 K/uL (4.8-10.8)
[2024-10-09 05:37] LABS: CREATININE 1.7 mg/dL (0.5-1.0); GLOMERULAR FILTR. RATE CALC 31.0 mL/min (>90); GLUCOSE,RANDOM 177.0 mg/dL (70-105); PHOSPHORUS 4.9 mg/dL (2.5-4.9); SODIUM SERUM 141.0 mmol/L (136-145); UREA NITROGEN, BLOOD 48.0 mg/dL (7-18)
[2024-10-09] MEDS ORDERED: MEROPENEM 500MG 500 MG VIAL IV SCH (06:00)
[2024-10-09] MEDS: amLODIPine 5 MG TAB PO SCH (08:30)
[2024-10-09] MEDS: LISINOPRIL 20 MG TABLET PO SCH (08:30)
[2024-10-09] MEDS: EZETIMIBE 10 MG TAB PO SCH (08:30)
[2024-10-09] MEDS: ASPIRIN 81MG CHEW TAB PO SCH (08:30)
--- NOTE | 2024-10-09 10:14 | PN ---
[facility] PROGRESS NOTE Date of Service: Oct 09, 2024 Time of Service: 10:12 SUBJECTIVE: [ ] Ms. Pink is a 78-year-old female with history of stomach cancer, Diabetes-Type II, High Cholesterol, Heart Disease, Hypertension, Vascular Disease who presented to [facility] [place] [facility] for evaluation of positive UTI. The patient reported that she has been on Macrobid but her PCP told her to come to the ED for treatment of UTI w + culture for ESBL. The patient is allergic to amoxicillin. 10/09 patient is lying in bed patient appears in no distress discussed the plan of care with patient most likely we will need IV antibiotics upon discharge we will consult case management. REVIEW OF SYSTEMS 12-point ROS reviewed with the patient. All pertinent positives mentioned above. Otherwise negative, noncontributory, non-pertinent. PHYSICAL EXAM GENERAL APPEARANCE: The patient is awake, alert, and oriented, in no acute cardiopulmonary distress. NEUROLOGICAL: Cranial nerves II-XII grossly intact. Motor is 5/5 in bilateral upper and lower extremities proximal to distal. No sensory deficits. HEENT: Face is symmetric. Pupils are equal and reactive. Extraocular movements are intact. NECK: Supple. No JVD. No thyromegaly. No submental, submandibular, pre- /postauricular, occipital or supraclavicular lymphadenopathy. CHEST: Normal chest expansion. No Telemetry. LUNGS: Absence of any rales, rhonchi or any wheezing. CARDIOVASCULAR: Regular. S1 and S2 normal. No appreciable rubs, murmurs or gallops. ABDOMEN: Soft, nontender, and nondistended. There is no rebound, voluntary guarding, or rigidity. : Deferred. No Shankar. EXTREMITIES: Non-edematous and not cyanotic. No clubbing. Good capillary refill. SKIN: No skin breakdown. Vital Signs (last 8hr) Date Time Temp Pulse Resp B/P (MAP) Pulse Ox O2 Delivery O2 Flow Rate FiO2 10/09/24 08:00 98.1 57 19 147/53 96 Room Air 21 10/09/24 04:00 98.6 69 18 158/66 97 LABS: Laboratory: Test 10/09/24 05:10 10/08/24 21:21 10/08/24 18:07 10/08/24 15:56 Range/Units White Blood Count 5.4 4.8-10.8 K/uL Red Blood Count 3.03 L 4.00-5.50 MIL/uL Hemoglobin 9.1 L 12.0-16.0 g/dL Hematocrit 28.4 L 36-48 % Mean Corpuscular Volume 93.7 79-99 fL Mean Corpuscular Hemoglobin 30.0 27.0-33.0 pg Mean Corpuscular Hemoglobin Concent 32.0 32.0-36.0 g/dL Red Cell Distribution Width 13.2 11.0-15.5 % Platelet Count 195 130-400 K/uL Mean Platelet Volume 9.5 7.5-10.5 fL Nucleated Red Blood Cells 0.0 0.0-0.19 % Sodium Level 141 136-145 mmol/L Potassium Level 4.4 3.5-5.1 mmol/L Chloride Level 108 101-111 mmol/L Carbon Dioxide Level 25 21-32 mmol/L Blood Urea Nitrogen 48 H 7-18 mg/dL Creatinine 1.7 H 0.5-1.0 mg/dL Glomerular Filtration Rate Calc 31 >90 mL/min Random Glucose 177 H 70-105 mg/dL Total Calcium 8.8 8.5-10.1 mg/dL Phosphorus Level 4.9 2.5-4.9 mg/dL Magnesium Level 2.00 1.80-2.40 mg/dL Whole Blood Glucose 135 #H 70-110 MG/DL Urine Color YELLOW YELLOW Urine Appearance SL CLOUDY CLEAR Urine pH 6.0 5.0-8.0 Urine Specific [place] 1.015 1.001-1.031 Urine Protein NEGATIVE NEGATIVE mg/dL Urine Glucose (UA) >=1000 H NEGATIVE mg/dL Urine Ketones NEGATIVE NEGATIVE mg/dL Urine Occult Blood TRACE-INTACT H NEGATIVE Urine Nitrate POSITIVE H NEGATIVE Urine Bilirubin NEGATIVE NEGATIVE mg/dL Urine Urobilinogen 0.2 0.2-1.0 mg/dL Urine Leukocyte Esterase SMALL H NEGATIVE Tisha/uL Urine RBC 11-25 H 0-1 /HPF Urine WBC >100 H 0-1 /HPF Urine WBC Clumps (Auto) FEW 0-1 /HPF Urine Squamous Epithelial Cells FEW 0-2 /HPF Urine Non-Squamous Epithelial Cells 1 0-2 /HPF Urine Other Crystals (Auto) 3 None Seen /HPF Urine Bacteria FEW None Seen /HPF Urine Yeast FEW None Seen /HPF Immature Granulocyte % (Auto) 0.4 0-1 % Neutrophils (%) (Auto) 71.8 40.0-77.0 % Lymphocytes (%) (Auto) 15.5 L 21.0-51.0 % Monocytes (%) (Auto) 8.0 3.0-13.0 % Eosinophils (%) (Auto) 3.7 0.0-8.0 % Basophils (%) (Auto) 0.6 0.0-5.0 % Neutrophils # (Auto) 3.7 1.8-7.7 K/uL Lymphocytes # (Auto) 0.8 L 1.0-4.8 K/uL Monocytes # (Auto) 0.4 0.1-1.0 K/uL Eosinophils # (Auto) 0.19 0.00-0.70 K/uL Basophils # (Auto) 0.03 0.00-0.20 K/uL Absolute Immature Granulocyte (auto 0.02 0-1 K/uL Hemoglobin A1c 7.8 H 4.0-6.0 % Estimated Average Glucose (eAG) 177 H 70-126 mg/dL Current Medications Medications (Trade) Dose Ordered Sig/Candy Route PRN Reason Start Time Stop Time Status Last Admin Dose Admin Acetaminophen (TYLenol 325MG TAB) 650 mg Q6H PRN PO FEVER/MILD PAIN LEVEL 1-3 10/08/24 19:30 11/07/24 19:29 Acetaminophen (TYLenol 650MG SUPPOSITORY) 650 mg Q6H PRN RC FEVER / MILD PAIN 1-3 IF NPO 10/08/24 19:30 11/07/24 19:29 Acetaminophen/ Hydrocodone Bitart (NORco 5/325MG) FOR MODERATE PAIN SC... Q6H PRN PO PAIN 4-10 10/08/24 19:30 10/13/24 19:29 Amlodipine Besylate (NorvASC 5MG TAB) 5 mg BID PO 10/09/24 09:00 11/08/24 08:59 10/09/24 08:30 5 MG Aspirin (Aspirin 81mg Chew Tab) 81 mg DAILY PO 10/09/24 09:00 11/08/24 08:59 10/09/24 08:30 81 MG Atorvastatin Calcium (LIPItor 10MG) 10 mg DAILY PO 10/09/24 09:00 11/08/24 08:59 10/09/24 08:30 10 MG Clonidine HCl (CATApres 0.1 mg TAB) 0.1 mg Q8H PRN PO IF SBP GREATER THAN 160 10/09/24 03:00 11/08/24 02:59 Clopidogrel Bisulfate (plaVIX 75MG) 75 mg DAILY PO 10/09/24 09:00 11/08/24 08:59 10/09/24 08:29 75 MG Dextrose (D50w) 50 ml AD PRN IV HYPOGLYCEMIA PROTOCOL 10/08/24 19:30 11/07/24 19:29 Docusate Sodium (COLace 100MG CAP) 100 mg BID PRN PO CONSTIPATION 10/08/24 19:30 11/07/24 19:29 EZETIMIBE (Zetia) 10 mg DAILY PO 10/09/24 09:00 11/08/24 08:59 10/09/24 08:30 10 MG Fish Oil (Fish Oil 1000 Mg/Cap) 1,000 mg HS PO 10/09/24 21:00 11/08/24 20:59 Glucagon (Glucagon 1mg Kit) 1 mg AD PRN IM HYPOGLYCEMIA PROTOCOL 10/08/24 19:30 11/07/24 19:29 Insulin Human Regular (humuLIN R 100 UNIT/ML 3ML) INSULIN SLIDING SCAL... ACHS SQ 10/08/24 21:00 11/07/24 20:59 10/09/24 08:38 4 UNIT Labetalol HCl (TRANdate 20MG SYG) 10 mg Q2H PRN IV SBP GREATER THAN 160 10/08/24 19:30 11/07/24 19:29 Lactulose (Constulose 20gm/ 30ml Udcup) 20 gm Q6H PRN PO CONSTIPATION 10/08/24 19:30 11/07/24 19:29 Lisinopril (Prinivil 20mg) 20 mg DAILY PO 10/09/24 09:00 11/08/24 08:59 10/09/24 08:30 20 MG Magnesium Sulfate 50 ml @ 0 mls/hr PROTOCOL PRN IV MAGNESIUM PROTOCOL 10/08/24 19:30 11/07/24 19:29 Meropenem (Merrem 1gm) 1 gm ONCE IV 10/08/24 19:00 10/08/24 19:25 DC Meropenem (Merrem 500mg) 500 mg Q12H IV 10/09/24 20:00 10/19/24 19:59 Meropenem (Merrem 500mg) 500 mg Q8H6 IV 10/09/24 06:00 10/08/24 19:21 DC Nitroglycerin (Nitrostat) 0.4 mg AD SL 10/09/24 03:00 11/08/24 02:59 Ondansetron HCl (zoFRAN 4MG INJ) 4 mg Q6H PRN IVP NAUSEA/VOMITING 10/08/24 19:30 11/07/24 19:29 Potassium Chloride 100 ml @ 100 mls/hr AD PRN IV POTASSIUM PROTOCOL 10/08/24 19:30 11/07/24 19:29 Potassium Chloride (K-Dur/Klor-Con 20meq) 10 meq AD PRN PO POTASSIUM PROTOCOL 10/08/24 19:30 11/07/24 19:29 Potassium Chloride (KCl 10% Elixir 20meq/15ml) 10 meq AD PRN PO POTASSIUM PROTOCOL 10/08/24 19:30 11/07/24 19:29 Temazepam (restORIL 15 MG CAP) 15 mg HS PRN PO INSOMNIA/SLEEP 10/08/24 19:30 11/07/24 19:29 DIAGNOSTICS / RADIOLOGY: [ ] ASSESSMENT: Acute complicated cystitis with + ESBL, per outpatient results Failed outpatient oral antibiotic therapy, POA Anemia chronic disease JAN, on CRF Acute on chronic kidney disease, GFR 27 (GFR 36 on 10/05/2024, prior recorded GFR 65 was on 10/12/2021) Diabetes mellitus with hyperglycemia, A1c 7.8 Chronic problem list: Stomach cancer, diabetes mellitus type 2, hypercholeste remia, CAD, heart disease s/p CABG, LVEF 72% per Lexiscan on 11/17/2018, hypertension, peripheral vascular disease s/p lower extremity stents PLAN: -Admit to Medical floor. -Continue Merrem 500 mg IV q.12 hours per renal dose. cisco consultant: ID -LR at 75 mL/ hour. -Follow urine cultures. -P.r.n. medications for pain management, nausea, vomiting, constipation, hypertension, fever. -Consult Nephrology for acute on chronic kidney disease. -Reconciled/started home medications: Clonidine prn, nitroglycerin, prn, amlodipine, atorvastatin, lisinopril, aspirin, Plavix, Ezetimibe, omega-3. -Hold home medications glipizide, Jardiance, Tradjenta and start insulin sliding scale for now. -Glucometer checks AC & HS needed with insulin regular sliding scale coverage as needed. - Monitor renal and liver function. -Monitor electrolytes and treat accordingly PRN. -Monitor respiratory status. -Oxygen therapy as needed. Titrate oxygen prn to keep Spo2>/+=92%. -Blood pressure checks every 4 hours and as needed. - case management for discharge plan -AM labs. -GI and DVT prophylaxis -Further plan/orders per hospitalization course. ATTESTATION BY PHYSICIAN I have seen and examined the patient. I reviewed the documentation, medical decision making, and treatment plan as noted by the mid-level provider above. I agree with the findings and plan of care. KAT WISDOM MD, ELIZABETH NP Oct 09, 2024 10:14
--- NOTE | 2024-10-09 10:55 | NUR ---
DCP:HOME Pt currently lives with sps in their home. Pt does not report insecurities with food, mcfp, and/or utilities. Pt states that she uses a cane at home to ambulate. Pt does not have home health or provider services. Pt states that she has a nurse that goes to her home every 3 months to check her vitals. Pt is able to complete ADLs independently. PCP is Dr. Som Araujo and uses [facility] for any RX needs. At [place] pt will want to go home and family will assist with transportation. Addendum: 10/09/24 at 1058 by ELAN DUONG SS Amended: Links added.
[2024-10-09] MEDS: FISH OIL 1000 MG/CAP PO SCH (20:52)
[2024-10-09] MEDS: MEROPENEM 500MG 500 MG VIAL IV SCH (20:53)
--- NOTE | 2024-10-09 22:17 | HMCIMG ---
EXAM: CR Chest, 1 view CLINICAL HISTORY: PICC line placement. COMPARISON: Chest radiograph dated 10/05/2024. FINDINGS: The right PICC line tip overlies the right axillary area. The lungs show no infiltrates or other acute findings. No pleural effusion or pneumothorax. The cardiomediastinal silhouette is within normal limits. Status poststernotomy. Mild atherosclerotic aorta. No acute osseous abnormality. IMPRESSION: The right PICC line tip overlies the right axillary area. No acute cardiopulmonary process is evident. No adverse interval changes. /[place]
[2024-10-10] VITALS: BP 142/56; PULSE 63; RESP 17; TEMP 97.4
[2024-10-10 04:00] VITALS: BP 142/53; PULSE 60; RESP 17; TEMP 97.6
[2024-10-10 04:32] LABS: IMMATURE GRANULOCYTE ABSOLUTE 0.01 K/uL (0-1); NUCLEATED RED BLOOD CELLS 0.0 % (0.0-0.19); PLATELET COUNT (AUTO) 192 K/uL (130-400); RED BLOOD CELL COUNT(AUTO) 3.01 MIL/uL (4.00-5.50); RED CELL DISTRIBUTION WIDTH 13.1 % (11.0-15.5); WHITE BLOOD COUNT (AUTO) 5.4 K/uL (4.8-10.8)
[2024-10-10 04:46] LABS: ASPARTATE AMINOTRANSFERASE 16.0 U/L (10-37); CREATININE 1.3 mg/dL (0.5-1.0); GLOMERULAR FILTR. RATE CALC 43.0 mL/min (>90); GLUCOSE,RANDOM 140.0 mg/dL (70-105); SODIUM SERUM 142.0 mmol/L (136-145); TOTAL PROTEIN, SERUM 5.9 g/dL (6.0-8.3); UREA NITROGEN, BLOOD 40.0 mg/dL (7-18)
[2024-10-10 08:14] VITALS: BP 140/52; PULSE 58; RESP 18; TEMP 97.5
--- NOTE | 2024-10-10 08:23 | DS ---
Discharge Summary Hospital Course Summary: Ms. Pink is a 78-year-old female with history of stomach cancer, Diabetes-Type II, High Cholesterol, Heart Disease, Hypertension, Vascular Disease who presented to [facility] [place] [facility] for evaluation of positive UTI. The patient reported that she has been on Macrobid but her PCP told her to come to the ED for treatment of UTI w + culture for ESBL. The patient is allergic to amoxicillin. 10/09 patient is lying in bed patient appears in no distress discussed the plan of care with patient most likely we will need IV antibiotics upon discharge we will consult case management. 10/10/24 PATIENT WILL BE DISCHARGED HOME TODAY PATIENT WE WILL BE ON IV ANTIBIOTICS OUT PATIENT INFUSION CLINIC [facility] WE WILL BE GETTING MERREM G IV EVERY8 HOURS FOR14 DAYS. PATIENT HAS BEEN AFEBRILE, DENIED CHEST PAIN OR SH ORTNESS A BREATH SHE IS HEMODYNAMICALLY STABLE FOR DISCHARGE HOME. Assessment/Plan: DISCHARGED DX'S Acute complicated cystitis with + ESBL, per outpatient results Failed outpatient oral antibiotic therapy, POA Anemia chronic disease JAN, on CRF Acute on chronic kidney disease, GFR 27 (GFR 36 on 10/05/2024, prior recorded GFR 65 was on 10/12/2021) Diabetes mellitus with hyperglycemia, A1c 7.8 Chronic problem list: Stomach cancer, diabetes mellitus type 2, hypercholesteremia, CAD, heart disease s/p CABG, LVEF 72% per Lexiscan on 11/17/2018, hypertension, peripheral vascular disease s/p lower extremity stents PLAN: ADMISSION DATE: 10/09/2024 DISCHARGE DATE: 10/10/2024 DISPOSITION: HOME CONDITION: 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 Home Medications: Reported Medications Clonidine HCl (Clonidine HCl) 0.1 Mg Tablet, 0.1 MG PO Q8H PRN for IF SBP GREATER THAN 160, TAB 10/09/24 Glipizide (Glipizide) 5 Mg Tablet, 1 TAB PO BID for 30 Days, #60 TAB 0 Refills 10/09/24 Linagliptin (Tradjenta) 5 Mg Tablet, 5 MG PO AM, TAB 10/05/24 Empagliflozin (Jardiance) 10 Mg Tablet, 10 MG PO AM, TAB 10/05/24 Nitroglycerin (Nitroglycerin) 0.4 Mg Tab.subl, 0.4 MG SL AD for CHEST PAIN , TAB.SL 10/05/24 Atorvastatin Calcium (LIPITOR) 20 Mg Tab, 1 TAB PO DAILY for 30 Days, #30 TAB 0 Refills 04/05/24 Lisinopril (Lisinopril) 20 Mg Tablet, 1 TAB PO DAILY for 30 Days, #30 TAB 0 Refills 04/05/24 Amlodipine Besylate (Amlodipine Besylate) 5 Mg Tablet, 5 MG PO BID, TAB 04/05/24 Aspirin (Aspirin) 81 Mg Tab.chew, 81 MG PO DAILY, TAB.CHEW 02/07/19 [place]-3 Fatty Acids/Fish Oil ([place] 3 1,000 mg Softgel) 1 Each Capsule, 1 EACH PO HS, CAP 02/07/19 Ezetimibe (Ezetimibe) 10 Mg Tablet, 10 MG PO DAILY, TAB 02/07/19 Clopidogrel Bisulfate (Clopidogrel) 75 Mg Tablet, 75 MG PO DAILY, TAB 02/07/19 Discontinued Reported Medications Clonidine HCl (Clonidine HCl) 0.1 Mg Tablet, 0.1 MG PO EVERY 8 HOURS, TAB 04/05/24 Glipizide (Glipizide) 5 Mg Tablet, 5 MG PO DAILY, TAB 02/07/19 Sitagliptin Phosphate (Januvia) 100 Mg Tablet, 1 TAB PO DAILY for 30 Days, #30 TAB 0 Refills 04/05/24 [COq10] No Conflict Check, 100 MG PO AM 04/05/24 Continued Medications: Amlodipine Besylate (Amlodipine Besylate) 5 Mg Tablet 5 MG PO BID, TAB Aspirin (Aspirin) 81 Mg Tab.chew 81 MG PO DAILY, TAB.CHEW Atorvastatin Calcium (Lipitor) 20 Mg Tab 1 TAB PO DAILY for 30 Days, #30 TAB 0 Refills Clonidine HCl (Clonidine HCl) 0.1 Mg Tablet 0.1 MG PO Q8H PRN for IF SBP GREATER THAN 160, TAB Clopidogrel Bisulfate (Clopidogrel) 75 Mg Tablet 75 MG PO DAILY, TAB Empagliflozin (Jardiance) 10 Mg Tablet 10 MG PO AM, TAB Ezetimibe (Ezetimibe) 10 Mg Tablet 10 MG PO DAILY, TAB Glipizide (Glipizide) 5 Mg Tablet 1 TAB PO BID for 30 Days, #60 TAB 0 Refills Linagliptin (Tradjenta) 5 Mg Tablet 5 MG PO AM, TAB Lisinopril (Lisinopril) 20 Mg Tablet 1 TAB PO DAILY for 30 Days, #30 TAB 0 Refills Nitroglycerin (Nitroglycerin) 0.4 Mg Tab.subl 0.4 MG SL AD for CHEST PAIN , TAB.SL [place]-3 Fatty Acids/Fish Oil ([place] 3 1,000 mg Softgel) 1 Each Capsule 1 EACH PO HS, CAP Time spent arranging discharge: 31-60 minutes ATTESTATION BY PHYSICIAN I have seen and examined the patient. I reviewed the documentation, medical decision making, and treatment plan as noted by the mid-level provider above. I agree with the findings and plan of care. KAT WISDOM MD, ELIZABETH NP Oct 10, 2024 08:23
--- NOTE | 2024-10-10 10:10 | CONS ---
INFECTIOUS DISEASE CONSULTATION NOTE DATE OF SERVICE: 10/09/2024. REQUESTING PHYSICIAN: Vale Celestni NP REASON FOR CONSULTATION: UTI, on antibiotic management. HISTORY OF PRESENT ILLNESS: A 78-year-old female with history of recurrent UTI, gastric cancer, diabetes mellitus, and dyslipidemia who was admitted with positive urine culture. The patient did complain of urinary symptoms and back pain. The patient's recent urine culture came back with E. coli and ESBL. The patient has been started on meropenem. No cough. No hemoptysis or pleuritic pain. Denied headache or dizziness. No depression. No suicidal ideation. No bleeding tendencies. PAST MEDICAL HISTORY: * Gastric cancer. * Diabetes mellitus. * Dyslipidemia. * Hypertension. * Peripheral vascular disease. * UTI. PAST SURGICAL HISTORY: * CABG. * Stenting of lower extremities. ALLERGIES: INCLUDE: * AMOXICILLIN. * LIPITOR. * ZETIA. * PROPOXYPHENE. CURRENT MEDICATIONS: Include: * Meropenem. * Insulin. * Tylenol. * Aspirin. * Zofran. SOCIAL HISTORY: No alcohol, tobacco or illicit drug use. FAMILY HISTORY: Positive for diabetes mellitus. REVIEW OF SYSTEMS: Greater than 10 systems were reviewed and negative except as documented above. PHYSICAL EXAMINATION: GENERAL: Elderly female, awake. VITAL SIGNS: Temperature 98.1, pulse 57, respirations 18, BP 147/53. EYES: No icterus. Pupils equal and reactive. HENT: No oral thrush seen. Moist oral mucosa. NECK: Supple. No JVD or thyromegaly. LUNGS: Good air entry. No rales. No rhonchi. CARDIOVASCULAR SYSTEM: S1 and S2 regular. No murmur heard. ABDOMEN: Full, soft, nontender. Bowel sounds are present. CENTRAL NERVOUS SYSTEM: Awake, alert, oriented x 3. No focal deficits. SKIN: No rashes, no itchiness. LYMPHATIC: No peripheral lymphadenopathy. BACK: No deformity, no pressure ulcer. MUSCULOSKELETAL: No joint swelling, erythema or tenderness. LABORATORY DATA: Sodium 141, potassium 4.4. BUN 48, creatinine 1.7. WBC 5.4, hemoglobin 9.1, platelets 195. Urine culture grew E. coli. ASSESSMENT: A 78-year-old female presented with urinary symptoms. CURRENT PROBLEMS: Include: * UTI. * Infection with multidrug-resistant organism. * Diabetes mellitus. * Dehydration. * Renal insufficiency. PLAN: * Continue meropenem. * Continue antidiabetic. * Continue pain management. * Continue nutritional support. * Monitor electrolytes. * Continue DVT prophylaxis. * The patient will be followed up closely. Thank you for allowing me to participate in the care of this patient. TID: [id number] RECEIPT: [id number]
--- NOTE | 2024-10-10 17:09 | PN ---
INFECTIOUS DISEASE PROGRESS NOTE Date of Service: Oct 10, 2024 SUBJECTIVE: This 78 year old female patient is being seen today at bedside. No fever or chills. No nausea or vomiting. Patient denies any chest pain or shortness of breath. As per nurse patient has been accepted to [facility] and will be d/c today. She will continue with antibiotics as outpatient. No questions or concerns at this time by patient and family. PHYSICAL EXAM EYES: Anicteric. Pupils equal and reactive. HENT: No oral thrush seen, moist Oral mucosa NECK: Supple, no JVD or thyromegaly. LUNGS: Good air entry. No rales, no rhonchi. CARDIOVASCULAR: S1, S2 regular. No murmur heard. ABDOMEN: Soft, non tender, bowel sounds present, no organomegaly CENTRAL NERVOUS SYSTEM: Awake, alert, oriented x 3. No focal deficits. SKIN: No rashes, no swelling. LYMPHATICS: No peripheral lymphadenopathy MUSCULOSKELETAL: No joint swelling, erythema or tenderness. EXTREMITIES: No cyanosis or clubbing BACK: No deformity, no pressure ulcer. GENITOURINARY: No dysuria or hematuria Vital Sign (Last 12 Hours) 10/10/24 08:14 Temp 97.5 Pulse 58 Resp 18 B/P (MAP) 140/52 Pulse Ox 97 O2 Delivery Room Air Intake & Output (last 24hrs) 10/09/24 10/09/24 10/10/24 15:00 23:00 07:00 Intake Total 240 ml Output Total 1200 ml 700 ml Balance -1200 ml -460 ml LABS: Laboratory: Test 10/10/24 10:41 10/10/24 04:13 10/09/24 16:33 10/09/24 05:10 Range/Units Whole Blood Glucose 232 #H 70-110 MG/DL White Blood Count 5.4 4.8-10.8 K/uL Red Blood Count 3.01 L 4.00-5.50 MIL/uL Hemoglobin 9.1 L 12.0-16.0 g/dL Hematocrit 28.0 L 36-48 % Mean Corpuscular Volume 93.0 79-99 fL Mean Corpuscular Hemoglobin 30.2 27.0-33.0 pg Mean Corpuscular Hemoglobin Concent 32.5 32.0-36.0 g/dL Red Cell Distribution Width 13.1 11.0-15.5 % Platelet Count 192 130-400 K/uL Mean Platelet Volume 9.8 7.5-10.5 fL Immature Granulocyte % (Auto) 0.2 0-1 % Neutrophils (%) (Auto) 63.2 40.0-77.0 % Lymphocytes (%) (Auto) 24.4 21.0-51.0 % Monocytes (%) (Auto) 7.6 3.0-13.0 % Eosinophils (%) (Auto) 4.2 0.0-8.0 % Basophils (%) (Auto) 0.4 0.0-5.0 % Neutrophils # (Auto) 3.4 1.8-7.7 K/uL Lymphocytes # (Auto) 1.3 1.0-4.8 K/uL Monocytes # (Auto) 0.4 0.1-1.0 K/uL Eosinophils # (Auto) 0.23 0.00-0.70 K/uL Basophils # (Auto) 0.02 0.00-0.20 K/uL Absolute Immature Granulocyte (auto 0.01 0-1 K/uL Nucleated Red Blood Cells 0.0 0.0-0.19 % Sodium Level 142 136-145 mmol/L Potassium Level 3.9 3.5-5.1 mmol/L Chloride Level 107 101-111 mmol/L Carbon Dioxide Level 25 21-32 mmol/L Blood Urea Nitrogen 40 H 7-18 mg/dL Creatinine 1.3 H 0.5-1.0 mg/dL Glomerular Filtration Rate Calc 43 >90 mL/min Random Glucose 140 H 70-105 mg/dL Total Calcium 8.4 L 8.5-10.1 mg/dL Magnesium Level 1.80 1.80-2.40 mg/dL Total Bilirubin 0.3 0.2-1.0 mg/dL Aspartate Amino Transf (AST/SGOT) 16 10-37 U/L Alanine Aminotransferase (ALT/SGPT) 20 12-78 U/L Alkaline Phosphatase 45 L 50-136 U/L Total Protein 5.9 L 6.0-8.3 g/dL Albumin 3.0 L 3.5-5.0 g/dL Bedside Glucose Comment Notified Nurse Phosphorus Level 4.9 2.5-4.9 mg/dL Test 10/08/24 18:07 Range/Units Urine Color YELLOW YELLOW Urine Appearance SL CLOUDY CLEAR Urine pH 6.0 5.0-8.0 Urine Specific [place] 1.015 1.001-1.031 Urine Protein NEGATIVE NEGATIVE mg/dL Urine Glucose (UA) >=1000 H NEGATIVE mg/dL Urine Ketones NEGATIVE NEGATIVE mg/dL Urine Occult Blood TRACE-INTACT H NEGATIVE Urine Nitrate POSITIVE H NEGATIVE Urine Bilirubin NEGATIVE NEGATIVE mg/dL Urine Urobilinogen 0.2 0.2-1.0 mg/dL Urine Leukocyte Esterase SMALL H NEGATIVE Tisha/uL Urine RBC 11-25 H 0-1 /HPF Urine WBC >100 H 0-1 /HPF Urine WBC Clumps (Auto) FEW 0-1 /HPF Urine Squamous Epithelial Cells FEW 0-2 /HPF Urine Non-Squamous Epithelial Cells 1 0-2 /HPF Urine Other Crystals (Auto) 3 None Seen /HPF Urine Bacteria FEW None Seen /HPF Urine Yeast FEW None Seen /HPF ASSESSMENT: UTI. * Infection with multidrug-resistant organism. * Diabetes mellitus. * Dehydration. * Renal insufficiency. PLAN: * Continue meropenem. * Continue antidiabetic. * Continue pain management. * Continue nutritional support. * Monitor electrolytes. * Continue DVT prophylaxis. * The patient will be followed up closely. * Patient to continue antibiotics a [facility] This case has been discussed with my supervising physician Dr. Eller. The case has been discussed and agreed upon. [facility] Oct 10, 2024 17:09
== END 2024-10-10 14:25 | disposition home or self-care (01) ==
LOC: EDH 15:14 → EDHIP 18:57 → 3DH 23:31
PROVIDERS: ADMIT Internal Medicine; ATTEND Internal Medicine
DX: N30.00 Acute cystitis without hematuria (principal); I12.9 Hypertensive chronic kidney disease with stage 1 through stage 4 chronic kidney disease, or unspecified chronic kidney disease; E11.22 Type 2 diabetes mellitus with diabetic chronic kidney disease; N18.9 Chronic kidney disease, unspecified; N17.9 Acute kidney failure, unspecified; I25.10 Atherosclerotic heart disease of native coronary artery without angina pectoris; E86.0 Dehydration; D63.1 Anemia in chronic kidney disease; E11.65 Type 2 diabetes mellitus with hyperglycemia; E11.51 Type 2 diabetes mellitus with diabetic peripheral angiopathy without gangrene; E78.00 Pure hypercholesterolemia, unspecified; Z16.24 Resistance to multiple antibiotics; Z79.4 Long term (current) use of insulin; Z85.028 Personal history of other malignant neoplasm of stomach; Z88.0 Allergy status to penicillin; Z95.1 Presence of aortocoronary bypass graft; Z95.820 Peripheral vascular angioplasty status with implants and grafts; Z79.899 Other long term (current) drug therapy; Z98.890 Other specified postprocedural states
CPT/HCPCS: 96365; 96366 ×2; 99284; 83036; 80048 ×2; 85025 ×2; 82948 ×5; 81001; 36415 ×3; 36556; 83735 ×2; 84100; 85027; 71045; 80053; G0378 ×43; J7120; J3010; J7030; J3490; J2250; J2704; J1815 ×3; C1750; J2185 ×2; C1894

== ENCOUNTER → 2025-02-18 | Outpatient (CLI) | payer OTHER ==
[~2025-02-18] MED LIST changes: -0.9%NACL 1000ML 1,000 ML IV ONE; -COq10 PO; -EMPA10TA PO; -EZET10TA48 PO; +EZET10TA80 PO; -GLIP5TAB15 PO; -LISI20TA24 PO; -SITA100T12 PO
== END | disposition home or self-care (01) ==
LOC: RAH 12:28
PROVIDERS: ATTEND Internal Medicine
DX: Z12.31 Encounter for screening mammogram for malignant neoplasm of breast (principal)
CPT/HCPCS: 77067